=== PATIENT | female | born 1965 | race Hispanic/Latino ===

== ENCOUNTER 2019-09-20 08:49 | Emergency (ER) | payer SELFPAY ==
[2019-09-20] VITALS (27 sets, daily range): BP systolic 123–157; BP diastolic 63–106; PULSE 84–119; RESP 13–28; TEMP 36.8; O2SAT 96–100
--- NOTE | ~2019-09-20 | XR_ITS ---
EXAMINATION: XR chest 1V portable DATE: 09/20/2019 10:01 INDICATION: Shortness of breath. TECHNIQUE: A single frontal view of the chest was obtained. COMPARISON: None. FINDINGS: The chest demonstrates clear lungs without pneumonia, pleural effusion, or pneumothorax. Th e heart size is normal. IMPRESSION: 1. No acute cardiopulmonary disease. Reviewed, dictated and finalized at location A.
--- NOTE | 2019-09-20 09:28 | ECG_ITS ---
Measurements Intervals [place] Rate: 78 P: 19 MN: 134 QRS: 21 QRSD: 94 T: 38 QT: 372 QTc: 426 Interpretive Statements SINUS RHYTHM DELAYED PRECORDIAL R/S TRANSITION BORDERLINE ECG Electronically Signed On 09-20-2019 10:29:23 CDT by Mandeep Moore D.O.
[2019-09-20] MEDS: IPRATROPIUM BR 0.02% INH SOLN 0.5 MG/2.5 ML VIAL 1.5 MG INHALATION (09:46)
[2019-09-20] MEDS: ALBUTEROL SULFATE NEB 2.5 MG/0.5 ML INH 15 MG INHALATION (09:46)
[2019-09-20 10:29] LABS: Blood Urea Nitrogen 10 mg/dL (7-17); Calcium 8.8 mg/dL (8.4-10.2); Carbon Dioxide 20 mmol/L (22-30); Chloride 109 mmol/L (98-107); Estimated CRCL calculation 84 ml/min; Estimated Glomerular Filt Rate > 60; Glucose 116 mg/dL (65-105); Potassium 3.7 mmol/L (3.4-5.0); Sodium 139 mmol/L (137-145)
--- NOTE | 2019-09-20 11:31 | PC.NURSE ---
UDT completed. Note patient is not coughing as much as on arrival, but denies feeling any better.
--- NOTE | 2019-09-20 11:43 | PC.NURSE ---
No audible wheezing heard at this time.
[2019-09-20 11:45] LABS: Basophils Absolute Auto 0.1 K/mm3 (0.0-0.1); Basophils Percent Auto 1.1 % (0.2-1.2); Eosinophils Absolute Auto 0.8 K/mm3 (0-0.3); Eosinophils Percent Auto 7.9 % (0-4.4); Hemoglobin 13.7 g/dL (12.0-15.0); Immature Granulocyte Absolute 0.02 K/mm3 (0.00-0.031); Immature Granulocyte Percent A 0.2 % (0-0.5); Lymphocytes Absolute Auto 2.19 K/mm3 (0.9-3.2); Lymphocytes Percent Auto 23.2 % (18.3-44.2); Mean Corpuscular HGB Conc 33.4 g/dl (32-36); Mean Corpuscular Hemoglobin 28.4 pg (26-34); Mean Corpuscular Volume 84.9 fl (80-100); Mean Platelet Volume 9.5 fl (7.4-10.4); Monocytes Absolute Auto 0.7 K/mm3 (0.1-0.6); Monocytes Percent Auto 6.9 % (2.6-8.5); Neutrophils Absolute Auto 5.8 K/mm3 (1.3-6.7); Neutrophils Percent Auto 60.7 % (45.5-73.1); Platelet Count Result 241 k/mm3 (150-375); Red Blood Count 4.83 M/mm3 (4.2-5.4); White Blood Count 9.5 K/mm3 (4.5-10.0)
--- NOTE | 2019-09-20 13:44 | ED.SOB ---
HPI - SOB/Dyspnea General Chief Complaint: Shortness of Breath/Dyspnea Stated Complaint: sob Time Seen by Provider: 09/20/19 09:13 History of Present Illness HPI Narrative: Patient is a 54-year-old female who presents ER with shortness of breath. Ongoing for the last 2 weeks but worsening over the last week. Associated with cough. No fevers no chills. Has history of reactive airway disease and uses albuterol and usually improves when taking steroids. She does not have a primary care doctor. She denies any chest pain. Has been using her albuterol 3-4 times a day without relief. No known sick contacts. This often occurs with season change. Related Data Home Medications Medication Instructions Recorded Confirmed Cough Syrup 09/20/19 albuterol sulfate [ProAir HFA] 2 puff INHALATION QID PRN 09/20/19 09/20/19 Allergies Allergy/AdvReac Type Severity Reaction Status Date / Time No Known Allergies Allergy Verified 09/20/19 09:24 Review of Systems Review of Systems: All systems reviewed & are unremarkable except as noted in HPI and below Constitutional: Constitutional: Denies chills, Denies fever(s) and Denies weakness ENT: Denies nasal congestion and Denies sore throat Cardiovascular: Cardiovascular: Denies chest pain and Denies radiating jaw, neck or arm pain Respiratory: Respiratory: Reports cough, Reports dyspnea and Reports wheezing Gastrointestinal: Gastrointestinal: Denies abdominal pain, Denies nausea and Denies vomiting PMFSH Past Medical History Medical History (Updated 09/20/19 @ 14:21 by Gopi Calderon MD) Reactive airway disease Surgical History Surgical History (Updated 09/20/19 @ 13:45 by Goip Calderon MD) No significant past surgical history Social History Social History (Updated 09/20/19 @ 13:45 by Gopi Calderon MD) Smoking status: Never smoker Exam Narrative: Exam Narrative: GENERAL: Well-appearing, well-nourished, and in no acute distress. HEAD: Normocephalic, atraumatic. ENT: Mucous membranes moist. CHEST: Diffuse expiratory wheezing. Mild tachypnea. HEART: Regular rate and rhythm. Normal peripheral pulses. ABDOMEN: Soft, nontender, nondistended. EXTREMITIES: Normal range of motion. No edema. SKIN: Warm, dry, no rash. NEURO: Alert and oriented x3. PSYCH: Normal mood and affect. Course Course Emergency Course: Patient still with wheezing after hour-long nebulizer but feels much better. Discussed chamber use with albuterol. Discharged with prednisone. Vital Signs Vital signs: Vital Signs Pulse Rate 109 H 09/20/19 08:53 Respiratory Rate 22 H 09/20/19 08:53 Blood Pressure 157/87 H 09/20/19 08:53 Pulse Oximetry 98 09/20/19 08:53 Temperature 98.3 F 09/20/19 09:26 Pulse Rate 87 09/20/19 13:38 Respiratory Rate 20 09/20/19 13:38 Blood Pressure 143/73 H 09/20/19 13:16 Pulse Oximetry 97 09/20/19 13:38 MDM - SOB/Dyspnea Lab Data Result diagrams: 09/20/19 11:39 09/20/19 10:01 Labs: Lab Results 09/20/19 09/20/19 Range/Units 10:01 11:39 WBC 9.5 (4.5-10.0) K/mm3 RBC 4.83 (4.2-5.4) M/mm3 Hgb 13.7 (12.0-15.0) g/dL Hct 41.0 (37.0-47.0) % MCV 84.9 (80-100) fl MCH 28.4 (26-34) pg MCHC 33.4 (32-36) g/dl RDW 13.0 (11.5-14.5) % Plt Count 241 (150-375) k/mm3 MPV 9.5 (7.4-10.4) fl Immature Gran % (Auto) 0.2 (0-0.5) % Neut % (Auto) 60.7 (45.5-73.1) % Lymph % (Auto) 23.2 (18.3-44.2) % [place] % (Auto) 6.9 (2.6-8.5) % Eos % (Auto) 7.9 H (0-4.4) % Baso % (Auto) 1.1 (0.2-1.2) % Lymph # (Auto) 2.19 (0.9-3.2) K/mm3 [place] # (Auto) 0.7 H (0.1-0.6) K/mm3 Eos # (Auto) 0.8 H (0-0.3) K/mm3 Baso # (Auto) 0.1 (0.0-0.1) K/mm3 Abs Immat Gran (auto) 0.02 (0.00-0.031) K/mm3 Absolute Neuts (auto) 5.8 (1.3-6.7) K/mm3 Absolute Nucleated RBC 0.0 (0.0-0.012) K/mm3 Nucleated RBC % 0.0 (0.0-0.2) % Sodium 139 (137-145) mmol
== END 2019-09-20 14:35 | disposition home or self-care (01) ==
PROVIDERS: Emergency Provider Emergency Medicine
DX: J40 Bronchitis, not specified as acute or chronic (principal)
CPT/HCPCS: 36415; 71045; 80048; 85025; 93005; 99284

== ENCOUNTER 2019-10-11 22:08 | Emergency (ER) | payer SELFPAY ==
--- NOTE | ~2019-10-11 | XR_ITS ---
EXAMINATION: XR chest 1V portable INDICATION: Cough TECHNIQUE: Portable AP chest at 2222 hours COMPARISON: 09/20/2019 FINDINGS: There are airspace opacities of the lower lung zones. No pleural effusion or pneumothorax i s identified. The cardiomediastinal silhouette is normal. IMPRESSION: 1. Minimal airspace opacities of the lung bases, consistent with atelectasis versus pneumonia. Reviewed, dictated and finalized at location A. IMPRESSION: 1. Minimal airspace opacities of the lung bases, consistent with atelectasis ve rsus pneumonia.
[2019-10-11 22:17] VITALS: BP 138/99; PULSE 95; RESP 18; TEMP 36.8; O2SAT 99
[2019-10-11 22:46] VITALS: PULSE 95; RESP 18
[2019-10-11] MEDS: ALBUTEROL SULFATE NEB 2.5 MG/0.5 ML INH 5 MG INHALATION ×2 (22:46→22:59)
[2019-10-11] MEDS: IPRATROPIUM BR 0.02% INH SOLN 0.5 MG/2.5 ML VIAL INHALATION ×2 (22:46→22:59)
[2019-10-11 22:53] VITALS: PULSE 93; RESP 18
[2019-10-11] MEDS: predniSONE 20 MG TABLET 60 MG PO (22:56)
--- NOTE | 2019-10-11 22:59 | ED.SOB ---
HPI - SOB/Dyspnea General Chief Complaint: Shortness of Breath/Dyspnea Stated Complaint: cough Time Seen by Provider: 10/11/19 22:12 Source: RN notes reviewed and old records reviewed History of Present Illness HPI Narrative: Patient presents emergency department from home for cough. Patient states for the past 3 days she has had a cough that is been nonproductive. She states is associated with mild shortness of breath and wheezing. Patient states that she has a history of reactive airway disease and has had similar symptoms usually treated with steroids and inhaler. Patient also notes mild sore throat. She denies any fevers or chills rhinorrhea chest pain abdominal pain nausea vomiting or any other symptoms. Patient denies tobacco use Related Data Home Medications Medication Instructions Recorded Confirmed Cough Syrup 09/20/19 albuterol sulfate [ProAir HFA] 2 puff INHALATION QID PRN 09/20/19 09/20/19 Allergies Allergy/AdvReac Type Severity Reaction Status Date / Time No Known Allergies Allergy Verified 09/20/19 09:24 Review of Systems Review of Systems: Narrative: Gen.: Denies fevers or chills Eyes: Denies eye pain or visual change ENT: Denies congestion, reports sore throat Respiratory: See HPI CV: Denies chest pain or palpitations GI: Denies abdominal pain nausea, emesis or diarrhea Musculoskeletal: Denies back pain or muscle pain Neuro: Denies numbness, tingling, weakness or focal weakness Skin: Denies rash Except as documented, all other systems reviewed and negative PMFSH Past Medical History Medical History Reactive airway disease Surgical History Surgical History (Updated 09/20/19 @ 13:45 by Gopi Calderon MD) No significant past surgical history Social History Social History Smoking status: Never smoker Exam Narrative: Exam Narrative: APPEARANCE: No acute distress, nontoxic, resting in bed EYES: EOMI HEENT: Normocephalic, atraumatic, nares patent oromucosa moist, mild erythema no Clark posterior pharynx bilateral tonsils RESPIRATORY: No respiratory distress wheezing throughout the bilateral lung smith with no rhonchi or rales CARDIOVASCULAR: Regular rate and rhythm without murmurs rubs or gallops. ABDOMINAL: Soft, nontender, nondistended, no rebound or guarding MUSCULOSKELETAl: Moves all extremities. No clubbing, cyanosis or edema. NEURO: Awake and alert. Following commands, speech normal, no focal deficits SKIN:: Warm, dry. No rashes lesions or abrasions PSYCHIATRIC: Normal affect/mood, Course Course Emergency Course: Patient states she is feeling much better following breathing treatment repeat lung exam is clear to all station bilaterally Discussed with patient results of workup and diagnosis. Discussed need for follow-up with primary care, proper use of medication, and reasons to return to the emergency department. Patient understands and agrees to current treatment plan Vital Signs Vital signs: Vital Signs Temperature 98.3 F 10/11/19 22:17 Pulse Rate 95 10/11/19 22:17 Respiratory Rate 18 10/11/19 22:17 Blood Pressure 138/99 H 10/11/19 22:17 Pulse Oximetry 99 10/11/19 22:17 Temperature 98.3 F 10/11/19 22:17 Pulse Rate 92 10/11/19 23:10 Respiratory Rate 18 10/11/19 23:10 Blood Pressure 138/99 H 10/11/19 22:17 Pulse Oximetry 99 10/11/19 22:17 MDM - SOB/Dyspnea Lab Data Labs: Strep Screen Presumptive Negative *(Reference Range: Negative)* Imaging Data Radiologist's impression: ITS Impressions Chest X-Ray 10/11/19 22:24 IMPRESSION: 1. Minimal airspace opacities of the lung bases, consistent with atelectasis versus pneumonia. Discharge Plan Discharge Clinical Impression: Acute upper respiratory infection Patient Disposition: Home, Self-Care Condition: Stable In
[2019-10-11 23:02] VITALS: PULSE 94; RESP 18
[2019-10-11 23:10] VITALS: PULSE 92; RESP 18
[2019-10-12 00:08] VITALS: BP 142/84; PULSE 88; RESP 18; O2SAT 97
== END 2019-10-12 00:10 | disposition home or self-care (01) ==
PROVIDERS: Emergency Provider Emergency Medicine
DX: J06.9 Acute upper respiratory infection, unspecified (principal); J45.909 Unspecified asthma, uncomplicated
CPT/HCPCS: 71045; 87081; 87880; 94640; 99284; J7512

== ENCOUNTER 2019-10-31 18:58 | Emergency (ER) | payer SELFPAY ==
[2019-10-31] VITALS (7 sets, daily range): BP systolic 116–160; BP diastolic 73–117; PULSE 93–120; RESP 15–35; TEMP 36.3–36.4; O2SAT 96–100
--- NOTE | 2019-10-31 19:02 | ECG_ITS ---
Measurements Intervals [place] Rate: 125 P: 34 MS: 140 QRS: 24 QRSD: 89 T: 12 QT: 316 QTc: 456 Interpretive Statements SINUS TACHYCARDIA DELAYED PRECORDIAL R/S TRANSITION BASELINE ARTIFACT- I, II, III, AVR, AVL, AVF, V1, V4-V6 ABNORMAL ECG Electronically Signed On 11-01-2019 11:30:46 CDT by Mandeep Moore D.O.
[2019-10-31] MEDS: IPRATROPIUM BR 0.02% INH SOLN 0.5 MG/2.5 ML VIAL 1.5 MG INHALATION (19:14)
[2019-10-31] MEDS: ALBUTEROL SULFATE NEB 2.5 MG/0.5 ML INH 15 MG INHALATION (19:14)
[2019-10-31 19:32] LABS: Basophils Absolute Auto 0.1 K/mm3 (0.0-0.1); Basophils Percent Auto 1.5 % (0.2-1.2); Eosinophils Absolute Auto 0.6 K/mm3 (0-0.3); Eosinophils Percent Auto 9.4 % (0-4.4); Hematocrit 42.7 % (37.0-47.0); Hemoglobin 14.4 g/dL (12.0-15.0); Immature Granulocyte Absolute 0.01 K/mm3 (0.00-0.031); Immature Granulocyte Percent A 0.2 % (0-0.5); Lymphocytes Absolute Auto 1.77 K/mm3 (0.9-3.2); Lymphocytes Percent Auto 29.1 % (18.3-44.2); Mean Corpuscular HGB Conc 33.7 g/dl (32-36); Mean Corpuscular Hemoglobin 28.7 pg (26-34); Mean Corpuscular Volume 85.2 fl (80-100); Mean Platelet Volume 11.2 fl (7.4-10.4); Monocytes Absolute Auto 0.7 K/mm3 (0.1-0.6); Monocytes Percent Auto 10.8 % (2.6-8.5); Platelet Count Result 210 k/mm3 (150-375); Red Blood Count 5.01 M/mm3 (4.2-5.4); Red Cell Distribution Width 12.7 % (11.5-14.5); White Blood Count 6.1 K/mm3 (4.5-10.0)
[2019-10-31 19:44] LABS: Blood Urea Nitrogen 11 mg/dL (7-17); Calcium 8.5 mg/dL (8.4-10.2); Carbon Dioxide 25 mmol/L (22-30); Chloride 109 mmol/L (98-107); Estimated Glomerular Filt Rate > 60; Glucose 126 mg/dL (65-105); Potassium 3.7 mmol/L (3.4-5.0); Sodium 141 mmol/L (137-145)
--- NOTE | 2019-10-31 19:44 | ED.SOB ---
HPI - SOB/Dyspnea General Chief Complaint: Shortness of Breath/Dyspnea Stated Complaint: SOB Time Seen by Provider: 10/31/19 19:04 History of Present Illness HPI Narrative: Patient is a 54-year-old female who presents the ER with shortness of breath. She has history of asthma. Reports she began getting short of breath yesterday but then it is worsened today. She has been using her inhaler without relief. No new infectious symptoms. Related Data Home Medications Medication Instructions Recorded Confirmed Cough Syrup 09/20/19 albuterol sulfate [ProAir HFA] 2 puff INHALATION QID PRN 09/20/19 09/20/19 Allergies Allergy/AdvReac Type Severity Reaction Status Date / Time No Known Allergies Allergy Verified 09/20/19 09:24 Review of Systems Review of Systems: ROS unobtainable: Yes unobtainable due to medical condition and other (sami speaking in rest distress) [facility] Surgical History Surgical History (Updated 09/20/19 @ 13:45 by Gopi Calderon MD) No significant past surgical history Social History Social History Smoking status: Never smoker Exam Narrative: Exam Narrative: GENERAL: Uncomfortable-appearing, well-nourished, and in moderate distress. HEAD: Normocephalic, atraumatic. ENT: Mucous membranes moist. CHEST: Tachypnea with diffuse inspiratory/expiratory wheezing. Moderate respiratory distress. HEART: Tachycardic and regular. Normal peripheral pulses. ABDOMEN: Soft, nontender, nondistended. EXTREMITIES: Normal range of motion. No edema. SKIN: Warm, dry, no rash. NEURO: Alert and oriented x3. Course Course Emergency Course: Patient is up and ambulatory without hypoxia. Feels much better. Discharge with steroids and refill of albuterol. Vital Signs Vital signs: Vital Signs Temperature 97.3 F L 10/31/19 19:09 Pulse Rate 120 H 10/31/19 19:09 Respiratory Rate 35 H 10/31/19 19:09 Blood Pressure 160/117 H 10/31/19 19:09 Pulse Oximetry 97 10/31/19 19:09 Temperature 97.6 F 10/31/19 21:35 Pulse Rate 93 10/31/19 21:35 Respiratory Rate 29 H 10/31/19 21:35 Blood Pressure 122/73 10/31/19 21:35 Pulse Oximetry 96 10/31/19 21:35 MDM - SOB/Dyspnea Lab Data Result diagrams: 10/31/19 19:27 10/31/19 19:27 Labs: Lab Results 10/31/19 10/31/19 Range/Units 19:27 19:27 WBC 6.1 (4.5-10.0) K/mm3 RBC 5.01 (4.2-5.4) M/mm3 Hgb 14.4 (12.0-15.0) g/dL Hct 42.7 (37.0-47.0) % MCV 85.2 (80-100) fl MCH 28.7 (26-34) pg MCHC 33.7 (32-36) g/dl RDW 12.7 (11.5-14.5) % Plt Count 210 (150-375) k/mm3 MPV 11.2 H (7.4-10.4) fl Immature Gran % (Auto) 0.2 (0-0.5) % Neut % (Auto) 49.0 (45.5-73.1) % Lymph % (Auto) 29.1 (18.3-44.2) % [place] % (Auto) 10.8 H (2.6-8.5) % Eos % (Auto) 9.4 H (0-4.4) % Baso % (Auto) 1.5 H (0.2-1.2) % Lymph # (Auto) 1.77 (0.9-3.2) K/mm3 [place] # (Auto) 0.7 H (0.1-0.6) K/mm3 Eos # (Auto) 0.6 H (0-0.3) K/mm3 Baso # (Auto) 0.1 (0.0-0.1) K/mm3 Abs Immat Gran (auto) 0.01 (0.00-0.031) K/mm3 Absolute Neuts (auto) 3.0 (1.3-6.7) K/mm3 Absolute Nucleated RBC 0.0 (0.0-0.012) K/mm3 Nucleated RBC % 0.0 (0.0-0.2) % Sodium 141 (137-145) mmol/L Potassium 3.7 (3.4-5.0) mmol/L Chloride 109 H (98-107) mmol/L Carbon Dioxide 25 (22-30) mmol/L BUN 11 (7-17) mg/dL Creatinine 0.80 (0.7-1.0) mg/dL Estim Creat Clear Calc Not Reportable Estimated GFR > 60 (59 - ) Glucose 126 H (65-105) mg/dL Calcium 8.5 (8.4-10.2) mg/dL Discharge Plan Discharge Clinical Impression: Asthma with exacerbation Patient Disposition: Home, Self-Care Condition: Stable Instructions: Asthma (ED) Additional Instructions: Return to the ER if you have worsening shortness of breath, you cannot keep down food or water, you have chest pain or shortness of breath, you have ad
[2019-10-31] MEDS: methylPREDNISolone SOD SUCC 125 MG VIAL IV PUSH (19:53)
--- NOTE | 2019-10-31 22:15 | PC.NURSE ---
pt walked around ED with pulse oximetry. Remained 96-98% on room air and HR 105bpm. Pt stated she did not feel sob
== END 2019-10-31 22:38 | disposition home or self-care (01) ==
PROVIDERS: Emergency Provider Emergency Medicine
DX: J45.901 Unspecified asthma with (acute) exacerbation (principal); R00.0 Tachycardia, unspecified; R94.31 Abnormal electrocardiogram [ECG] [EKG]
CPT/HCPCS: 36415; 80048; 85025; 93005; 94640; 96374; 99284; J2930

== ENCOUNTER 2019-11-27 03:37 | Emergency (ER) | payer SELFPAY ==
--- NOTE | ~2019-11-27 | XR_ITS ---
EXAMINATION: XR chest 1V portable DATE: 11/27/2019 04:13 INDICATION: Shortness of breath TECHNIQUE: frontal view of the chest was obtained. COMPARISON: Chest radiograph dated 10/11/2019 FINDINGS: The lungs remain clear with no focal airspace opacities, pulmonary edema, pleural effusion or pneumot horax. The cardiomediastinal silhouette is normal. Visualized bones and soft tissues are unremarkable . IMPRESSION: 1. No acute cardiopulmonary disease. Reviewed, dictated and finalized at location A.
[2019-11-27 03:46] VITALS: BP 131/80; PULSE 76; RESP 20; TEMP 36.6; O2SAT 100
[2019-11-27] MEDS: ALBUTEROL SULFATE NEB 2.5 MG/0.5 ML INH 5 MG INHALATION (04:12)
[2019-11-27] MEDS: IPRATROPIUM BR 0.02% INH SOLN 0.5 MG/2.5 ML VIAL INHALATION (04:12)
[2019-11-27 04:13] VITALS: PULSE 76; RESP 22
[2019-11-27 04:20] VITALS: O2SAT 96
[2019-11-27 04:22] VITALS: PULSE 74; RESP 20
[2019-11-27] MEDS: predniSONE 20 MG TABLET 60 MG PO (04:25)
[2019-11-27 04:38] VITALS: BP 114/79; PULSE 80; RESP 18; O2SAT 95
--- NOTE | 2019-11-27 04:57 | ED.ASTHMA ---
HPI - Asthma General Chief Complaint: Asthma Stated Complaint: asthma exacerbation Time Seen by Provider: 11/27/19 03:45 Source: RN notes reviewed History of Present Illness HPI Narrative: Patient presents emergency department from home for shortness of breath. Patient states she has a history of asthma and feels that her asthma is flared up over the past 24 hours. States she has been having wheezing and using her rescue inhaler with minimal relief. She denies any fevers or chills cough abdominal pain nausea vomiting or any other symptoms. States she has been using her inhaler as prescribed Related Data Home Medications Medication Instructions Recorded Confirmed Cough Syrup 09/20/19 albuterol sulfate [ProAir HFA] 2 puff INHALATION QID PRN 09/20/19 09/20/19 Allergies Allergy/AdvReac Type Severity Reaction Status Date / Time No Known Allergies Allergy Verified 11/27/19 03:49 Review of Systems Review of Systems: Narrative: Gen.: Denies fevers or chills Eyes: Denies eye pain or visual change ENT: Denies congestion Respiratory: See HPI CV: Denies chest pain or palpitations GI: Denies abdominal pain nausea, emesis or diarrhea Musculoskeletal: Denies back pain or muscle pain Neuro: Denies numbness, tingling, weakness or focal weakness Skin: Denies rash Except as documented, all other systems reviewed and negative [facility] Surgical History Surgical History (Updated 09/20/19 @ 13:45 by Gopi Calderon MD) No significant past surgical history Social History Social History Smoking status: Never smoker Exam Narrative: Exam Narrative: APPEARANCE: No acute distress, nontoxic, resting in bed EYES: EOMI HEENT: Normocephalic, atraumatic, OMM RESPIRATORY: Moderate distress, wheezing in the upper lung smith, no rhonchi or rales CARDIOVASCULAR: Regular rate and rhythm without murmurs rubs or gallops. ABDOMINAL: Soft, nontender, nondistended, no rebound or guarding MUSCULOSKELETAl: Moves all extremities. No clubbing, cyanosis or edema. NEURO: Awake and alert. Following commands, speech normal, no focal deficits SKIN:: Warm, dry. No rashes lesions or abrasions PSYCHIATRIC: Normal affect/mood, Course Course Emergency Course: Reviewed old records Patient states she is feeling much better following breathing treatment. Repeat lung exam clear to all station bilaterally Discussed with patient results of workup and diagnosis. Discussed need for follow-up with primary care, proper use of medication, and reasons to return to the emergency department. Patient understands and agrees to current treatment plan. Patient states she has an inhaler at home Vital Signs Vital signs: Vital Signs Temperature 97.8 F 11/27/19 03:46 Pulse Rate 76 11/27/19 03:46 Respiratory Rate 20 11/27/19 03:46 Blood Pressure 131/80 11/27/19 03:46 Pulse Oximetry 100 11/27/19 03:46 Temperature 97.8 F 11/27/19 03:46 Pulse Rate 80 11/27/19 04:38 Respiratory Rate 18 11/27/19 04:38 Blood Pressure 114/79 11/27/19 04:38 Pulse Oximetry 95 11/27/19 04:38 MDM - Asthma Imaging Data Attestation: I personally reviewed and interpreted this imaging study as follows: My impression: Chest x-ray reviewed by myself shows no acute process Discharge Plan Discharge Clinical Impression: Asthma with acute exacerbation Patient Disposition: Home, Self-Care Condition: Stable Instructions: Antibiotic Form, Asthma (ED) Additional Instructions: Return for increasing shortness of breath fever or any other symptoms of concern Prescriptions: New prednisone 20 mg tablet 20 mg PO BID Qty: 10 RF: 0 No Action albuterol sulfate [ProAir HFA] 90 mcg/actuation Hfa Aerosol Inhaler 2 puff INHALATION QID PRN (Reason: Cough) RF: 0 Cough Syrup RF: 0 prednisone 50 mg tablet 50 mg PO DAILY Qty: 8 RF: 0 (DME) Aerochamber MV Spacer See R
[2019-11-27 05:11] VITALS: BP 129/79; PULSE 88; RESP 15; O2SAT 96
== END 2019-11-27 05:11 | disposition home or self-care (01) ==
PROVIDERS: Emergency Provider Emergency Medicine
DX: J45.901 Unspecified asthma with (acute) exacerbation (principal)
CPT/HCPCS: 71045; 94640; 99283; J7512

== ENCOUNTER 2020-01-13 00:56 | Emergency (ER) | payer SELFPAY ==
[2020-01-13] VITALS (9 sets, daily range): BP systolic 94–139; BP diastolic 58–89; PULSE 68–98; RESP 14–22; TEMP 36.6; O2SAT 96
--- NOTE | ~2020-01-13 | XR_ITS ---
EXAMINATION: XR chest 1V portable DATE: 01/13/2020 02:01 INDICATION: Cough and shortness of breath. TECHNIQUE: A single frontal view of the chest was obtained. COMPARISON: Chest single view 11/27/2019 FINDINGS: The chest demonstrates clear lungs without pneumonia, pleural effusion, or pneumothorax. Th e heart size is normal. IMPRESSION: 1. No acute cardiopulmonary disease. Reviewed, dictated and finalized at location A.
--- NOTE | 2020-01-13 01:11 | ECG_ITS ---
Measurements Intervals [place] Rate: 89 P: 30 NM: 120 QRS: 50 QRSD: 99 T: 46 QT: 370 QTc: 451 Interpretive Statements SINUS RHYTHM VENTRICULAR PREMATURE COMPLEX DELAYED PRECORDIAL R/S TRANSITION BASELINE ARTIFACT- I, II, III, AVF, V4-V6 BORDERLINE ECG Electronically Signed On 01-13-2020 7:00:14 CDT by Mandeep Moore D.O.
--- NOTE | 2020-01-13 01:11 | ED.SOB ---
HPI - SOB/Dyspnea General Chief Complaint: Shortness of Breath/Dyspnea Stated Complaint: Wheezing/SOB Time Seen by Provider: 01/13/20 01:11 Source: RN notes reviewed History of Present Illness HPI Narrative: Patient presents emergency department from home for asthma. Patient states that she was having wheezing this evening. States she has a history of asthma and is out of her inhaler. She denies any cough. Denies any fevers or chills chest pain abdominal pain or any other symptoms. States she has been seen in the ED for similar episodes before in the past and this feels consistent with her previous asthma attacks Related Data Home Medications Medication Instructions Recorded Confirmed Cough Syrup 09/20/19 albuterol sulfate [ProAir HFA] 2 puff INHALATION QID PRN 09/20/19 09/20/19 Allergies Allergy/AdvReac Type Severity Reaction Status Date / Time No Known Allergies Allergy Verified 01/13/20 01:07 Review of Systems Review of Systems: Narrative: Gen.: Denies fevers or chills Eyes: Denies eye pain or visual change ENT: Denies congestion Respiratory: see HPI CV: Denies chest pain or palpitations GI: Denies abdominal pain nausea, emesis or diarrhea Musculoskeletal: Denies back pain or muscle pain Neuro: Denies numbness, tingling, weakness or focal weakness Skin: Denies rash Except as documented, all other systems reviewed and negative [facility] Surgical History Surgical History (Updated 09/20/19 @ 13:45 by Gopi Calderon MD) No significant past surgical history Social History Social History Smoking status: Never smoker Exam Narrative: Exam Narrative: APPEARANCE: No acute distress, nontoxic, resting in bed EYES: EOMI HEENT: Normocephalic, atraumatic, OMM RESPIRATORY: No respiratory distress wheezing throughout the bilateral lung smith with decreased breath sounds in the bases no rhonchi CARDIOVASCULAR: Regular rate and rhythm without murmurs rubs or gallops. ABDOMINAL: Soft, nontender, nondistended, no rebound or guarding MUSCULOSKELETAl: Moves all extremities. No clubbing, cyanosis or edema. NEURO: Awake and alert. Following commands, speech normal, no focal deficits SKIN:: Warm, dry. No rashes lesions or abrasions PSYCHIATRIC: Normal affect/mood, Course Course Emergency Course: Reviewed old records Given breathing treatment in ED. Following breathing treatment repeat lung exam is greatly improved with minimal wheezing upper lung smith. Patient states she is feeling much better ready for discharge Discussed with patient results of workup and diagnosis. Discussed need for follow-up with primary care, proper use of medication, and reasons to return to the emergency department. Patient understands and agrees to current treatment plan Vital Signs Vital signs: Vital Signs Temperature 97.8 F 01/13/20 00:58 Pulse Rate 98 01/13/20 00:58 Respiratory Rate 22 H 01/13/20 00:58 Blood Pressure 139/89 01/13/20 00:58 Pulse Oximetry 96 01/13/20 00:58 Temperature 97.8 F 01/13/20 00:58 Pulse Rate 69 01/13/20 02:24 Respiratory Rate 14 01/13/20 02:24 Blood Pressure 139/89 01/13/20 00:58 Pulse Oximetry 96 01/13/20 01:04 MDM - SOB/Dyspnea Imaging Data Attestation: I personally reviewed and interpreted this imaging study as follows: My impression: Chest x-ray reviewed by myself shows no acute process ECG Data EKG #1: Interpretation: Sinus rhythm 89, NC is normal, axis normal, QTC is normal, ST segments normal Discharge Plan Discharge Clinical Impression: Asthma with exacerbation Patient Disposition: Home, Self-Care Condition: Stable Instructions: Antibiotic Form, Asthma (ED) Additional Instructions: Return for increasing shortness of breath, fever or any other symptoms of concern Prescriptions: New prednisone 20 mg tablet 20 mg PO BID Qty: 10 RF: 0 albuterol sulfate 90 mcg/actuation HFA
[2020-01-13] MEDS: predniSONE 20 MG TABLET 60 MG PO (01:37)
[2020-01-13] MEDS: ALBUTEROL SULFATE NEB 2.5 MG/0.5 ML INH 5 MG INHALATION ×2 (02:02→02:18)
[2020-01-13] MEDS: IPRATROPIUM BR 0.02% INH SOLN 0.5 MG/2.5 ML VIAL INHALATION ×2 (02:03→02:17)
== END 2020-01-13 02:44 | disposition home or self-care (01) ==
PROVIDERS: Emergency Provider Emergency Medicine
DX: J45.901 Unspecified asthma with (acute) exacerbation (principal); I49.3 Ventricular premature depolarization
CPT/HCPCS: 71045; 93005; 94640; 99284; J7512

== ENCOUNTER 2020-02-07 23:55 | Inpatient (IN) | payer SELFPAY ==
--- NOTE | ~2020-02-07 | XR_ITS ---
EXAMINATION: XR chest 1V portable EXAM DATE: 02/08/2020 00:53 INDICATION: Shortness of breath. TECHNIQUE: Portable AP frontal chest x-ray was obtained. Comparison is made to prior examination from 01/13/2020. FINDINGS: The lungs are clear. There are no pleural effusions. The cardiomediastinal silhouette is within normal limits. There is no pneumothorax suspected. The bones and soft tissues are unremarkab le. There is no significant interval change. IMPRESSION: No acute cardiopulmonary findings. Reviewed, dictated and finalized at location A.
[2020-02-08] VITALS (25 sets, daily range): BP systolic 111–187; BP diastolic 62–116; PULSE 57–120; RESP 12–30; TEMP 35.8–36.9; O2SAT 94–100; BMI 32.8
--- NOTE | 2020-02-08 00:04 | ECG_ITS ---
Measurements Intervals [place] Rate: 115 P: 40 ND: 127 QRS: 34 QRSD: 97 T: 33 QT: 320 QTc: 443 Interpretive Statements SINUS TACHYCARDIA DELAYED PRECORDIAL R/S TRANSITION BASELINE ARTIFACT- I, II, III, AVR, AVL, AVF, V1-V6 ABNORMAL ECG Electronically Signed On 02-08-2020 6:40:08 CDT by Madneep Moore D.O.
[2020-02-08 00:25] LABS: Basophils Absolute Auto 0.1 K/mm3 (0.0-0.1); Basophils Percent Auto 1.4 % (0.2-1.2); Eosinophils Absolute Auto 0.7 K/mm3 (0-0.3); Eosinophils Percent Auto 7.9 % (0-4.4); Hematocrit 45.6 % (37.0-47.0); Hemoglobin 15.3 g/dL (12.0-15.0); Immature Granulocyte Absolute 0.01 K/mm3 (0.00-0.031); Immature Granulocyte Percent A 0.1 % (0-0.5); Lymphocytes Absolute Auto 3.58 K/mm3 (0.9-3.2); Lymphocytes Percent Auto 39.6 % (18.3-44.2); Mean Corpuscular HGB Conc 33.6 g/dl (32-36); Mean Corpuscular Hemoglobin 29.1 pg (26-34); Mean Corpuscular Volume 86.7 fl (80-100); Mean Platelet Volume 10.7 fl (7.4-10.4); Monocytes Absolute Auto 0.9 K/mm3 (0.1-0.6); Monocytes Percent Auto 9.7 % (2.6-8.5); Neutrophils Absolute Auto 3.7 K/mm3 (1.3-6.7); Neutrophils Percent Auto 41.3 % (45.5-73.1); Platelet Count Result 295 k/mm3 (150-375); Red Blood Count 5.26 M/mm3 (4.2-5.4); Red Cell Distribution Width 12.4 % (11.5-14.5)
[2020-02-08 00:33] LABS: Alveolar/Arterial O2 Gradient 28.4 mmHg; Base Excess ABG -2.1 mEq/l (+/-2.0); Carboxyhemoglobin 0.1 % THb (0-2.0); Device NON-INVASIVE VENT; Fractional Inspired Oxygen 30 %; HCO3 ABG 23.2 mEq/l (22.0-26.0); Methemoglobin ABG 0.4 %THb (0-1.5); Modified Allen's Test Pass; Oxygen Content ABG 21.1 %vol (16.0-22.0); Oxygen Saturation ABG 98.6 % (95.0-100.0); Oxyhemoglobin 97.8 % THb (90.0-100.0); PCO2 ABG 41.8 mmHg (35.0-45.0); PO2 ABG 136.4 mmHg (80.0-100.0); PO2 FiO2 Ratio Arterial Blood 4.55 %; Reduced Hemoglobin 1.7 %THb (0-5.0); Site Drawn LEFT RADIAL; Total Hemoglobin 15.2 g/dL (12.0-18.0); pH ABG 7.363 (7.350-7.450)
[2020-02-08 00:34] LABS: Non-Invasive Expiratory Pressure 6 CMH2O; Non-Invasive Inspiratory Pressure 12 CMH2O; Non-Invasive Vent Rate 4 /MIN
[2020-02-08] MEDS: IPRATROPIUM BR 0.02% INH SOLN 0.5 MG/2.5 ML VIAL 1 MG INHALATION (00:43)
[2020-02-08] MEDS: ALBUTEROL SULFATE NEB 2.5 MG/0.5 ML INH 10 MG INHALATION (00:43)
[2020-02-08 00:44] LABS: Anion Gap 9 mmol/L (8-16); Blood Urea Nitrogen 20 mg/dL (7-17); Calcium 9.5 mg/dL (8.4-10.2); Carbon Dioxide 26 mmol/L (22-30); Chloride 106 mmol/L (98-107); Estimated Glomerular Filt Rate 58; Glucose 101 mg/dL (65-105); Potassium 3.5 mmol/L (3.4-5.0); Sodium 141 mmol/L (137-145)
--- NOTE | 2020-02-08 02:20 | ED.SOB ---
HPI - SOB/Dyspnea General Chief Complaint: Shortness of Breath/Dyspnea Stated Complaint: sob Time Seen by Provider: 02/08/20 00:07 Source: patient and family Mode of arrival: ambulatory Limitations: language barrier History of Present Illness HPI Narrative: 54-year-old Japanese-speaking with a history of asthma was brought in by family with complaints of severe shortness of breath. As per the patient is been having shortness of breath for last few days however this evening symptoms got worse. He also mentions that she ran out of her nebulizer. No history of fever or chills. She denies any COVID exposure. Has occasional nonproductive cough. No history of nausea or vomiting. MD elicited complaint: shortness of breath Pertinent past history: asthma Onset (ago): day(s) (2) Timing: constant Severity: severe Exacerbating factors: nothing Relieving factors: nothing Known history of: asthma Associated symptoms: wheezing Related Data Home oxygen amount: none Home Medications Medication Instructions Recorded Confirmed Cough Syrup 09/20/19 albuterol sulfate [ProAir HFA] 2 puff INHALATION QID PRN 09/20/19 09/20/19 Allergies Allergy/AdvReac Type Severity Reaction Status Date / Time No Known Allergies Allergy Verified 01/13/20 01:07 Review of Systems Review of Systems: ROS unobtainable: Yes unobtainable due to medical condition Constitutional: Constitutional: Reports no additional constitutional complaints Eyes: Eyes: Reports as per HPI ENT: Reports as per HPI Cardiovascular: Cardiovascular: Reports no additional cardiovascular complaints Respiratory: Respiratory: Reports no additional respiratory complaints Gastrointestinal: Gastrointestinal: Reports no additional gastrointestinal complaints Musculoskeletal: Musculoskeletal: Reports no additional musculoskeletal complaints [facility] Past Medical History Medical History Reactive airway disease Surgical History Surgical History No significant past surgical history Social History Social History Smoking status: Never smoker Exam Narrative: Exam Narrative: GENERAL: Well-appearing, well-nourished, and in moderate respiratory distress unable to speak. HEAD: Normocephalic, atraumatic. EYES: PERRLA and EOMI. ENT: Nares clear, no rhinorrhea or epistaxis. Mucous membranes moist. NECK: Supple. CHEST: Bilateral wheeze, poor air entry. HEART: Tachycardic ABDOMEN: Soft, nontender, nondistended, normal active bowel sounds. EXTREMITIES: Normal range of motion. No edema. SKIN: Warm, dry, no rash. NEURO: No focal deficits. Alert and oriented x3. PSYCH: Normal mood and affect. Course Course Emergency Course: As patient is in severe respiratory distress will start on BiPAP. Also will give 1 hour long treatment with albuterol and Atrovent. Vital Signs Vital signs: Vital Signs Temperature 36.7 C 02/08/20 00:00 Pulse Rate 120 H 02/08/20 00:00 Respiratory Rate 30 H 02/08/20 00:00 Blood Pressure 187/116 H 02/08/20 00:00 Pulse Oximetry 100 02/08/20 00:00 Temperature 36.7 C 02/08/20 00:00 Pulse Rate 76 02/08/20 01:32 Respiratory Rate 16 02/08/20 01:32 Blood Pressure 187/116 H 02/08/20 00:00 Pulse Oximetry 98 02/08/20 00:25 MDM - SOB/Dyspnea MDM Narrative Medical decision making narrative: Given history of asthma and presently having severe shortness of breath will order CBC chemistry chest x-ray and hour-long neb treatment and also considering place her on BiPAP. Differential Diagnosis Differential diagnosis: Likely acute exacerbation of chronic obstructive airways disease, congestive heart failure and asthma with exacerbation Medical Records Attestation: I reviewed the patient's medical records. Lab Data Result diagrams: 02/08/20 00:06 02/08/20 00:06
--- NOTE | 2020-02-08 04:56 | PC.NURSE ---
This patient, Anya Dyer, was admitted to Intensive Care Unit-3. Patient/family oriented to hospital policies and general routines including ID bracelet, bed and alarms, visiting hours, pain management, procedures, bathroom and other care routines, personal items, smoking policy, room service/diet, and visiting hours. Valuables list has been completed. Information on how to activate the Rapid Response Team has been discussed. Patient/Family are encouraged to report perceived risks to care and to ask questions if they do not understand what they are told or what they should do.
--- NOTE | 2020-02-08 05:26 | PC.NURSE ---
Pt speaks minimal Yoruba- Admission assessment completed via [employer] system.
[2020-02-08] MEDS: SODIUM CHLORIDE 0.9% IV 1,000 ML 75 ML IV CONT (06:21)
--- NOTE | 2020-02-08 07:31 | PM.IMHP ---
H&P: HPI History of Present Illness Date/Time: 02/08/20 07:31 Chief complaint: respiratory distress, asthma excerbation Narrative: Anya Dyer is a 54 year old female with PMHx significant for Asthma, presented to ED due to worsening sob, ran out of Albuterol inhaler, has been using it more frequently in the last month or so, dry cough, non productive of sputum, wheezing, no n/v/abdominal pain/diarrhea, no fevers, no rigors, no chills, no loss of taste or smell, no sick contacts at home, no leg swelling, no chest pain. Has been using her Albuterol more often at night time as well. Review of Systems Review of Systems: Narrative: Worsening sob for the last month or so. Constitutional: Constitutional: Reports as per HPI Eyes: Eyes: Reports as per HPI ENT: Reports as per HPI Cardiovascular: Cardiovascular: Reports as per HPI Respiratory: Respiratory: Reports cough, Reports dyspnea and Reports wheezing Gastrointestinal: Gastrointestinal: Reports as per HPI and Reports no additional gastrointestinal complaints Musculoskeletal: Musculoskeletal: Reports no additional musculoskeletal complaints Integumentary/Breasts: Skin/Breast: Reports as per HPI Neurologic: Reports system reviewed and no additional complaints, except as documented and Reports as per HPI Psychiatric: Psychiatric: Reports as per HPI [facility] Past Medical History Medical History Reactive airway disease Surgical History Surgical History No significant past surgical history Social History Social History Smoking status: Never smoker Alcohol intake: never Substance use: never Substance use type: does not use Spiritual care concerns: No Meds Home Medications and Allergies Home Medications Medication Instructions Recorded Confirmed Type inhalational spacing device #1 each 09/20/19 02/08/20 Rx [Aerochamber MV] albuterol sulfate 2 puff INHALATION QID PRN #6.7 gm 10/11/19 02/08/20 Rx Allergies Allergy/AdvReac Type Severity Reaction Status Date / Time No Known Allergies Allergy Verified 01/13/20 01:07 Vital Signs Vital Signs - 24 hr 02/08/20 00:00 02/08/20 00:10 02/08/20 00:12 Temperature 98.0 F Pulse Rate 120 H 88 96 Respiratory Rate 30 H 28 H Blood Pressure 187/116 H Pulse Oximetry 100 98 02/08/20 00:25 02/08/20 01:00 02/08/20 01:32 Temperature Pulse Rate 88 87 76 Respiratory Rate 26 H 20 16 Blood Pressure 130/79 Pulse Oximetry 98 98 02/08/20 02:00 02/08/20 02:30 02/08/20 03:16 Temperature Pulse Rate 71 76 66 Respiratory Rate 12 16 17 Blood Pressure 111/75 127/81 Pulse Oximetry 99 100 98 02/08/20 04:00 02/08/20 04:27 02/08/20 04:50 Temperature 98.5 F 97.8 F Pulse Rate 60 59 L 63 Respiratory Rate 14 17 16 Blood Pressure 140/75 113/62 Pulse Oximetry 100 98 99 02/08/20 06:00 Temperature 98.5 F Pulse Rate 70 Respiratory Rate 17 Blood Pressure 124/72 Pulse Oximetry 100 Exam Narrative: Exam Narrative: Patient is lying bed in no acute distress, on supplemental O2 by NC. Const: General: cooperative, no acute distress and well developed Nutritional Appearance: average body habitus Orientation/consciousness: patient oriented x3 Limitations: language barrier HENMT: Head: normal to inspection and normocephalic Ears: hearing grossly normal bilaterally General nose exam: Normal external nose present Face and sinus: normal facial exam Mouth: Yes Normal oral and palatal mucosa present Eyes: General: appearance normal, both eyes and all related structures Pupils: Equal, round and reactive pupils present EOM: EOMs intact bilaterally Neck: Neck: full ROM, trachea midline, supple and no JVD Lymphatic: no lymphadenopathy noted Resp: Effort & Inspection: audible wheezes Auscultation: wheezes Cardio:
[2020-02-08] MEDS: IPRATROPIUM BR 0.02% INH SOLN 0.5 MG/2.5 ML VIAL INHALATION ×3 (09:43→21:02)
[2020-02-08] MEDS: ALBUTEROL SULFATE NEB 2.5 MG/0.5 ML INH 5 MG INHALATION ×3 (09:43→21:01)
[2020-02-08] MEDS: methylPREDNISolone SOD SUCC 125 MG VIAL 62.5 MG IV PUSH (11:12)
[2020-02-08 14:24] LABS: SARS-CoV-2 RNA PCR Negative
[2020-02-08] MEDS: methylPREDNISolone SOD SUCC 125 MG VIAL IV PUSH (14:54)
[2020-02-08] MEDS: methylPREDNISolone SOD SUCC 40 MG VIAL IV PUSH (18:48)
[2020-02-09] VITALS (11 sets, daily range): BP systolic 98–117; BP diastolic 60–70; PULSE 70–86; RESP 15–20; TEMP 36.2–36.8; O2SAT 92–97
[2020-02-09] MEDS: ALBUTEROL SULFATE NEB 2.5 MG/0.5 ML INH 5 MG INHALATION ×3 (01:59→21:56)
[2020-02-09] MEDS: IPRATROPIUM BR 0.02% INH SOLN 0.5 MG/2.5 ML VIAL INHALATION ×3 (01:59→21:56)
[2020-02-09] MEDS: methylPREDNISolone SOD SUCC 40 MG VIAL IV PUSH ×6 (03:30→23:17)
--- NOTE | 2020-02-09 09:51 | PM.IMPN ---
Progress Note: A&P Assessment and Plan (1) Asthma with exacerbation: Qualifiers: Asthma persistence: unspecified Asthma severity: severe Qualified Code(s): J45.901 - Unspecified asthma with (acute) exacerbation Code(s): J45.901 - Unspecified asthma with (acute) exacerbation Status: Acute Assessment and Plan: Improved. Still wheezing. Off of supplemental oxygen. Breathing treatments Tapering course of systemic steroids. Subjective Date/time seen: 02/09/20 09:51 Patient in bed, no new issues overnight. Review of Systems Review of Systems: Narrative: Improved sob, afebrile, no new issues overnight. Constitutional: Comments: No chills, no rigors, no fevers. Eyes: Comments: No vision changes. ENT: Comments: no sore throat, no hearing deficit, no ear ache. Cardiovascular: Comments: no chest pain, no pnd, no orthopnea, no leg swelling. Respiratory: Comments: sob, wheezes. Gastrointestinal: Comments: no n/v/abdominal pain. Musculoskeletal: Comments: no muscle aches or pain. Integumentary/Breasts: Comments: no rashes. Neurologic: Comments: no motor or sensation deficit. Exam Narrative: Exam Narrative: Lying in bed NAD, looks comfortable. Const: General: cooperative and well developed Nutritional Appearance: average body habitus and well nourished Limitations: no limitations and language barrier HENMT: Head: normocephalic Ears: hearing grossly normal bilaterally General nose exam: Normal external nose present Face and sinus: normal facial exam Eyes: General: appearance normal, both eyes and all related structures Pupils: Equal, round and reactive pupils present EOM: EOMs intact bilaterally Neck: Neck: normal visual inspection, no lymphadenopathy and no JVD Resp: Effort & Inspection: normal respiratory effort Auscultation: wheezes Cardio: Jugular venous distension: no JVD Rate: regular rate Rhythm: regular rhythm Heart sounds: S1 normal heart sound present and S2 normal heart sound present GI: Inspection: normal to inspection GI Palp: Yes No hepatosplenomegaly present Auscultation: normal bowel sounds Skin: General skin exam: normal color and turgor normal Wounds: no wounds Neuro: General: patient oriented x3 Cranial nerves: Yes CN's II-XII intact bilaterally and Yes Bilaterally intact EOM present Motor exam (neuro): 5/5 motor strength present throughout Objective Data Vital Signs Vital Signs: Vital Signs - 24 hr 02/08/20 10:00 02/08/20 11:11 02/08/20 12:00 Temperature 96.4 F L Pulse Rate 57 L 78 70 Respiratory Rate 18 22 H Blood Pressure 133/75 Pulse Oximetry 98 02/08/20 14:00 02/08/20 14:26 02/08/20 16:00 Temperature 97.9 F Pulse Rate 86 75 90 Respiratory Rate 18 14 Blood Pressure 131/77 Pulse Oximetry 94 02/08/20 20:00 02/08/20 21:02 02/08/20 21:05 Temperature Pulse Rate 90 76 Respiratory Rate 14 18 Blood Pressure Pulse Oximetry 94 96 02/08/20 21:10 02/09/20 00:00 02/09/20 02:00 Temperature Pulse Rate 75 86 72 Respiratory Rate 18 18 18 Blood Pressure Pulse Oximetry 96 02/09/20 02:06 02/09/20 08:00 02/09/20 08:50 Temperature 98.2 F Pulse Rate 70 81 78 Respiratory Rate 18 15 20 Blood Pressure 117/60 Pulse Oximetry 92 02/09/20 09:00 02/09/20 09:48 Temperature Pulse Rate 76 Respiratory Rate 20 Blood Pressure Pulse Oximetry 96 Intake/Output Intake/Output: Intake & Output 02/06/20 02/07/20 02/08/20 02/09/20 23:59 23:59 23:59 23:59 Intake Total 1100 320 Output Total 700 450 Balance 400 -130 Meds/Results Medications: Active Medications Generic Name Dose Route Start Last Admin Trade Name Freq PRN Reason Stop Dose Admin Albuterol 5 mg 02/08/20 08:00 02/09/20 08:50 Albuterol Sulf Neb 2.5mg/0.5ml INHALATION 5 mg Q6HRT ISAURA Administration Ipratropium [place] 0.5 mg 02/08/20 08:00 02/09/20 08:50 Atrovent Neb INHALATION 0.5 mg Q6HRT
--- NOTE | 2020-02-09 13:37 | PC.NURSE ---
This patient, Anya Dyer, was transferred to [facility] on 02/09/20 at 1330. Personal belongings sent with patient. Belongings list checked and signed with receiving staff. Report given to aurelia fletcher. Appropriate documentation sent with patient.
--- NOTE | 2020-02-09 13:45 | PC.NURSE ---
Patient received from IMU at 1330 on 02/09/2020. Patient up in chair with no complaints at this time. Family at bedside. Will continue to monitor patient.
--- NOTE | 2020-02-09 17:23 | PCRCNOTE ---
Window of time for administration has passed. See next scheduled administration.
[2020-02-10 02:26] VITALS: PULSE 75; RESP 16
[2020-02-10 02:35] VITALS: PULSE 74; RESP 16
[2020-02-10 06:00] VITALS: BP 109/67; PULSE 70; RESP 16; TEMP 36.4; O2SAT 94
[2020-02-10] MEDS: methylPREDNISolone SOD SUCC 40 MG VIAL IV PUSH (06:35)
[2020-02-10] MEDS: ALBUTEROL SULFATE NEB 2.5 MG/0.5 ML INH 5 MG INHALATION (09:32)
[2020-02-10] MEDS: IPRATROPIUM BR 0.02% INH SOLN 0.5 MG/2.5 ML VIAL INHALATION (09:33)
[2020-02-10 09:34] VITALS: PULSE 83; RESP 16
[2020-02-10 09:43] VITALS: PULSE 90; RESP 16
--- NOTE | 2020-02-10 10:16 | PM.DS ---
DS: Admitting Diagnosis Admitting Diagnosis Admitting Diagnosis: respiratory distress, asthma excerbation DS: Discharge Diagnosis Discharge Diagnosis (1) Asthma with exacerbation: Qualifiers: Asthma persistence: unspecified Asthma severity: severe Qualified Code(s): J45.901 - Unspecified asthma with (acute) exacerbation Code(s): J45.901 - Unspecified asthma with (acute) exacerbation Status: Acute Assessment and Plan: Will complete tapering course of Prednisone in the outpatient setting. DS: Summary Hospital Course Reason for hospitalization: Acute Asthma exaerbation Hospital Course: Had uneventful hospital course, was ruled out for Covid 19, received systemic steroids, breathing treatments. Time spent discussing smoking cessation with patient: more than 10 minutes (Patient doesn't smoke.) Status at Discharge Functional status at discharge: independent ambulation Overall status at discharge: patient is back to baseline Time Spent with Patient Time attestation: Total time spent providing and/or coordinating discharge services: Time spent: Greater than 30 minutes Specific discharge activities: Needs to establish care in the area. Exam Narrative: Exam Narrative: Well appearing,NAD. Const: General: comfortable, alert and awake Nutritional Appearance: average body habitus and well nourished HENMT: Head: normal to inspection Ears: hearing grossly normal bilaterally General nose exam: Normal external nose present Face and sinus: normal facial exam Mouth: Yes Normal oral and palatal mucosa present Eyes: General: appearance normal, both eyes and all related structures Pupils: Equal, round and reactive pupils present EOM: EOMs intact bilaterally Neck: Neck: no lymphadenopathy and no JVD Resp: Effort & Inspection: normal respiratory effort Auscultation: clear to auscultation bilaterally Cardio: Jugular venous distension: no JVD Rate: regular rate Rhythm: regular rhythm Heart sounds: S1 normal heart sound present and S2 normal heart sound present GI: Inspection: normal to inspection GI Palp: Yes Soft to palpation and Yes No hepatosplenomegaly present Auscultation: normal bowel sounds Skin: General skin exam: normal color Lesions: no lesions Rashes: no rashes Trauma: no lacerations or abrasions Wounds: no wounds Neuro: General: patient oriented x3 Cranial nerves: Yes CN's II-XII intact bilaterally and Yes Equal, round and reactive pupils present DS: Data Data Completed and Pending Completed studies during hospitalization: Covid 19 SARS pcr Pending studies at discharge: None Labs on day of discharge: None Imaging Radiologist's impression: No acute cardiopulmonary findings. Discharge Plan Discharge Attending physician on discharge: Ariane Pugh V. Discharging Clinician: Ariane Pugh V. Patient Disposition: Home, Self-Care Activity: as tolerated Diet: regular Patient Instructions: Albuterol (By breathing), Asthma (DC) Stand Alone Forms: General Discharge Information Follow-up/Referrals: PHYSICIAN,AUT[employer] COUNTER PERSON [Primary Care Provider] - Follow Up with Primary Dr Discharge Medications: New montelukast 10 mg tablet 10 mg PO DAILY Qty: 30 RF: 0 Combivent Respimat 20-100 mcg/actuation mist 1 puff INHALATION Q4H Qty: 2 RF: 0 prednisone 10 mg tablet 10 mg PO DAILY Qty: 30 RF: 0 albuterol sulfate 90 mcg/actuation HFA aerosol inhaler 2 puff INHALATION QID MDD 8 puffs PRN (Reason: shortness of breath or wheezing) Qty: 18 RF: 0 Continued albuterol sulfate 90 mcg/actuation HFA aerosol inhaler 2 puff INHALATION QID PRN (Reason: shortness of breath or wheezing) Qty: 6.7 RF: 0 No Action (DME) Aerochamber MV Spacer See Rx Instructions .ROUTE .MEDSUPPLY Qty: 1 RF: 0 Date of admission: 02/08/20 02:13 Primary Care Provider: PHYSICIAN,[employer] COUNTER PERSON Admitting Provider: Sajan Park Discharge Date/Time: 02/10/20 11:45 Attending mila
== END 2020-02-10 11:45 | disposition home or self-care (01) | DRG 141 ==
LOC: ANHED 02-08 02:28 → ANHICU 02-08 03:11 → ANH2MED 02-10 10:29 → ANHICU 02-14 15:41
PROVIDERS: Admitting Provider Family Medicine; Emergency Provider Family Medicine; Visit Provider Internal Medicine
DX: J45.901 Unspecified asthma with (acute) exacerbation (principal); Z20.828 Contact with and (suspected) exposure to other viral communicable diseases; Z79.899 Other long term (current) drug therapy
CPT/HCPCS: 36415; 36600; 71045; 80048; 82375; 82805; 83050; 85025; 87635; 93005; 94002; 94640; 99285; C9803; J2920; J2930; J7030; U0003

== ENCOUNTER 2020-03-25 09:37 | Emergency (ER) | payer MEDICAID, SELFPAY ==
--- NOTE | ~2020-03-25 | XR_ITS ---
EXAMINATION: XR chest 1V portable INDICATION: Cough TECHNIQUE: Portable AP chest at 1033 hours COMPARISON: 02/08/2020 FINDINGS: The lungs are free of acute opacities. There is no pleural effusion or pneumothorax. The ca rdiomediastinal silhouette is normal. IMPRESSION: 1. No acute cardiopulmonary abnormality. Reviewed, dictated and finalized at location A. R PANEL INSTALLER
[2020-03-25 09:48] VITALS: BP 147/81; PULSE 81; RESP 26; TEMP 36.2; O2SAT 97
--- NOTE | 2020-03-25 10:51 | ED.GENADULT ---
HPI - General Adult General Chief complaint: Shortness of Breath/Dyspnea <Eriberto Maki PA-C - Last Filed: 03/25/20 11:04> Stated complaint: SOB-asthma <Eriberto Maki PA-C - Last Filed: 03/25/20 11:04> Time Seen by Provider: 03/25/20 10:03 <Eriberto Maki PA-C - Last Filed: 03/25/20 11:04> Source: patient and family <Eriberto Maki PA-C - Last Filed: 03/25/20 11:04> Mode of arrival: ambulatory <Eriberto Maki PA-C - Last Filed: 03/25/20 11:04> Limitations: language barrier <TEMO Ledbetter Last Filed: 03/25/20 11:04> History of Present Illness HPI narrative: Patient is a 54-year-old female who presents with asthma exacerbation that worsened last night and used her inhaler notes that she is had nonproductive cough with some minimal discomfort of the throat denies fever sick contacts or other complaints has appointment with asthma specialist in the near future only is using albuterol no other medications and on arrival is in no distress and does not appear on cough <Eriberto Maki PA-C - Last Filed: 03/25/20 11:04> Related Data Allergies/adverse reactions: Allergies Allergy/AdvReac Type Severity Reaction Status Date / Time No Known Allergies Allergy Verified 03/25/20 10:17 <Eriberto Maki PA-C - Last Filed: 03/25/20 11:04> Review of Systems Review of Systems: All systems reviewed & are unremarkable except as noted in HPI and below <Eriberto Maki PA-C - Last Filed: 03/25/20 11:04> PMFSH Past Medical History Medical History: Medical History Asthma with exacerbation Reactive airway disease <Eriberto Maki PA-C - Last Filed: 03/25/20 11:04> Surgical History Surgical History: Surgical History No significant past surgical history <TEMO Ledbetter Last Filed: 03/25/20 11:04> Social History Social History: Social History Smoking status: Never smoker Alcohol intake: never Substance use: never Substance use type: does not use Gender identity (if verbalized by the patient): Female Spiritual care concerns: No <Eriberto Maki PA-C - Last Filed: 03/25/20 11:04> Exam Narrative: Exam Narrative: GENERAL: Well-appearing, well-nourished, and in no acute distress. HEAD: Normocephalic, atraumatic. EYES: PERRLA and EOMI. ENT: Nares clear, no rhinorrhea or epistaxis. Mucous membranes moist. NECK: Supple. No adenopathy or masses. CHEST: Clear to auscultation. No respiratory distress. Mild expiratory wheezes HEART: Regular rate and rhythm. No murmur heard. Normal peripheral pulses. ABDOMEN: Soft, nontender, nondistended EXTREMITIES: Normal range of motion. No edema. SKIN: Warm, dry, no rash. NEURO: No focal deficits. Alert and oriented x3. PSYCH: Normal mood and affect. <Eriberto Maki PA-C - Last Filed: 03/25/20 11:04> Course Course Emergency Course: Patient in the room in no distress resting comfortably will be discharged home for further evaluation by her specialist and primary care will be given additional medications to include steroids was given a dose of steroid in the emergency department no high risk changes in the radiograph. Patient notes she has a spacer at home as well <Eriberto Maki PA-C - Last Filed: 03/25/20 11:04> Vital Signs Vital signs: Vital Signs Temperature 97.2 F L 03/25/20 09:48 Pulse Rate 81 03/25/20 09:48 Respiratory Rate 26 H 03/25/20 09:48 Blood Pressure 147/81 H 03/25/20 09:48 Pulse Oximetry 97 03/25/20 09:48 Temperature 97.2 F L 03/25/20 09:48 Pulse Rate 67 03/25/20 11:46 Respiratory Rate 18 03/25/20 11:46 Blood Pressure 129/83 03/25/20 11:46 Pulse Oximetry 100 03/25/20 11:46 <TEMO Ledbetter Last Filed: 03/25/20 11:04> Lola
[2020-03-25] MEDS: predniSONE 20 MG TABLET 60 MG PO (11:22)
[2020-03-25] MEDS: ALBUTEROL SULFATE NEB 2.5 MG/0.5 ML INH 5 MG INHALATION (11:39)
[2020-03-25 11:40] VITALS: PULSE 66; RESP 16
[2020-03-25] MEDS: IPRATROPIUM BR 0.02% INH SOLN 0.5 MG/2.5 ML VIAL INHALATION (11:40)
[2020-03-25 11:46] VITALS: BP 129/83; PULSE 67; RESP 18; O2SAT 100
--- NOTE | 2020-03-25 13:38 | ECG_ITS ---
Measurements Intervals Diana Rate: 79 P: 18 [place]: 120 QRS: 37 QRSD: 98 T: 37 QT: 379 QTc: 437 Interpretive Statements SINUS RHYTHM BASELINE ARTIFACT- II, III, V6 NORMAL ECG Electronically Signed On 03-25-2020 15:06:50 BODY DESIGN CHECKER by Mandeep Moore D.O.
== END 2020-03-25 11:48 | disposition home or self-care (01) ==
PROVIDERS: Emergency Provider General Practice
DX: J45.901 Unspecified asthma with (acute) exacerbation (principal)
CPT/HCPCS: 71045; 93005; 94640; 99283; J7512

== ENCOUNTER 2020-04-16 14:51 | Observation (INO) | payer SELFPAY ==
[2020-04-16] VITALS (14 sets, daily range): BP systolic 131–167; BP diastolic 64–105; PULSE 83–119; RESP 20–32; TEMP 36.3–36.8; O2SAT 88–100; BMI 30.1
--- NOTE | ~2020-04-16 | XR_ITS ---
EXAMINATION: XR chest 1V portable DATE: 04/16/2020 16:18 INDICATION: Asthma presenting with shortness of breath and wheezing TECHNIQUE: frontal view of the chest was obtained. COMPARISON: Chest radiograph dated 03/25/2020 FINDINGS: Mild streaky bibasilar opacities most likely atelectasis. Mild bronchial wall thickening consistent w ith given history of asthma. No pleural effusion or pneumothorax. The cardiomediastinal silhouette is normal. IMPRESSION: 1. Mild bronchial wall thickening consistent with given history of asthma. 2. Mild streaky bibasilar opacities and favor atelectasis over pneumonia. Reviewed, dictated and finalized at location H. RCYCLE RACER
--- NOTE | 2020-04-16 15:09 | ED.SOB ---
HPI - SOB/Dyspnea General Chief Complaint: Shortness of Breath/Dyspnea Stated Complaint: asthma Time Seen by Provider: 04/16/20 15:09 Source: patient Mode of arrival: wheelchair Limitations: no limitations and clinical condition History of Present Illness HPI Narrative: Patient is a 54-year-old female with a history of asthma, multiple admissions to this facility in the past for asthma exacerbation, who presents for evaluation of difficulty breathing, wheezing. Patient states that she started to have increased work of breathing yesterday, has had a dry cough. She denies fever, chills, loss of sense of taste or smell. Patient states this is symptoms similar to previous asthma exacerbations. She is not currently on any antibiotics or steroid therapy. Patient is in extremis at the time of assessment, severe respiratory distress, hypoxic, tachycardic, tachypneic, not able to provide a full history due to acuity of condition. Related Data Allergies Allergy/AdvReac Type Severity Reaction Status Date / Time No Known Allergies Allergy Verified 04/16/20 15:14 Review of Systems Review of Systems: Narrative: CONSTITUTIONAL: Denies fever ENT: Denies rhinorrhea, congestion CARDIOVASCULAR: Denies chest pain, palpitations, or edema. RESPIRATORY: Reports cough and shortness of breath GASTROINTESTINAL: Denies abdominal pain Limited due to acuity of condition PMFSH Past Medical History Medical History Asthma with exacerbation Reactive airway disease Surgical History Surgical History No significant past surgical history Social History Social History Smoking status: Never smoker Alcohol intake: never Substance use: never Substance use type: does not use Gender identity (if verbalized by the patient): Female Spiritual care concerns: No Exam Narrative: Exam Narrative: GENERAL: Awake, alert, able to speak in 1-2 word sentences only HEAD: Normocephalic, atraumatic. EYES: PERRLA and EOMI. ENT: Nares clear, no rhinorrhea or epistaxis. Mucous membranes dry NECK: Supple. CHEST: Tripod position on bed, respiratory distress, use of accessory muscles to breathe, hypoxic, tachypneic, audible wheezing inspiratory and expiratory, bilaterally, all lung smith, poor aeration throughout HEART: Tachycardic rate, sinus rhythm ABDOMEN:Non distended, non tender EXTREMITIES: Normal range of motion. No edema. SKIN: Warm, dry, no rash. NEURO:No focal deficits. Alert and oriented x3 Course Vital Signs Vital signs: Vital Signs Temperature 36.8 C 04/16/20 15:08 Pulse Rate 119 H 04/16/20 15:08 Respiratory Rate 32 H 04/16/20 15:08 Blood Pressure 148/105 H 04/16/20 15:08 Pulse Oximetry 88 L 04/16/20 15:08 Temperature 36.8 C 04/16/20 15:08 Pulse Rate 97 04/16/20 16:55 Respiratory Rate 21 H 04/16/20 16:55 Blood Pressure 167/95 H 04/16/20 15:23 Pulse Oximetry 100 04/16/20 15:23 MDM - SOB/Dyspnea MDM Narrative Medical decision making narrative: The patient presented in extremis from what appeared to be an asthma exacerbation. Patient with refractory, recurrent asthma exacerbations based on chart review with numerous previous admissions. Patient was immediately given 2 g of magnesium, Decadron, DuoNeb treatment with much improvement in her symptoms. At the time of reassessment, patient's tachypnea had markedly improved. She was able to be weaned down to 2 L via nasal cannula without severe increased work of breathing. Given severity, patient will likely require monitoring, additional DuoNeb treatments. I feel like she would likely benefit from a pulmonology as well given her history of recurrent admissions and exacerbations. I do not feel like patient's symptoms are consistent with coronavirus infection at this point. Chest x-ray with streaky opaci
--- NOTE | 2020-04-16 15:14 | ECG_ITS ---
Measurements Intervals [place] Rate: 99 P: 45 WA: 130 QRS: 30 QRSD: 95 T: 41 QT: 350 QTc: 450 Interpretive Statements SINUS RHYTHM DELAYED PRECORDIAL R/S TRANSITION BASELINE ARTIFACT- II, III, AVF, V2, V4-V6 BORDERLINE ECG Electronically Signed On 04-16-2020 17:57:37 [employer] SET UP OPERATOR by Mandeep Moore D.O.
[2020-04-16] MEDS: methylPREDNISolone SOD SUCC 125 MG VIAL IV PUSH (15:22)
[2020-04-16] MEDS: MAGNESIUM SULF 2 GM/WATER 50ML 2 GM/50 ML BAG IVPB (15:22)
[2020-04-16 15:26] LABS: Basophils Absolute Auto 0.2 K/mm3 (0.0-0.1); Basophils Percent Auto 1.6 % (0.2-1.2); Eosinophils Absolute Auto 1.6 K/mm3 (0-0.3); Eosinophils Percent Auto 16.8 % (0-4.4); Hematocrit 44.3 % (37.0-47.0); Hemoglobin 15.1 g/dL (12.0-15.0); Immature Granulocyte Absolute 0.01 K/mm3 (0.00-0.031); Immature Granulocyte Percent A 0.1 % (0-0.5); Immature Platelet Fraction Pct 19.1 % (0.9-11.2); Lymphocytes Percent Auto 23.4 % (18.3-44.2); Mean Corpuscular HGB Conc 34.1 g/dl (32-36); Mean Corpuscular Volume 85.2 fl (80-100); Monocytes Absolute Auto 0.8 K/mm3 (0.1-0.6); Neutrophils Absolute Auto 4.7 K/mm3 (1.3-6.7); Neutrophils Percent Auto 50.1 % (45.5-73.1); Red Cell Distribution Width 12.6 % (11.5-14.5); White Blood Count 9.4 K/mm3 (4.5-10.0)
[2020-04-16] MEDS: ALBUTEROL SULFATE NEB 2.5 MG/0.5 ML INH 20 MG INHALATION (15:31)
[2020-04-16 15:37] LABS: Anion Gap 10 mmol/L (8-16); Blood Urea Nitrogen 10 mg/dL (7-17); Calcium 9.4 mg/dL (8.4-10.2); Carbon Dioxide 23 mmol/L (22-30); Chloride 110 mmol/L (98-107); Estimated CRCL calculation 71 ml/min; Estimated Glomerular Filt Rate > 60; Glucose 104 mg/dL (65-105); Potassium 3.9 mmol/L (3.4-5.0); Sodium 143 mmol/L (137-145)
[2020-04-16 15:40] LABS: Alveolar/Arterial O2 Gradient 551.3 mmHg; Base Excess ABG -3.4 mEq/l (+/-2.0); Carboxyhemoglobin 0.2 % THb (0-2.0); Device NON-REBREATHER MASK; Fractional Inspired Oxygen 100 %; HCO3 ABG 21.4 mEq/l (22.0-26.0); Methemoglobin ABG 0.3 %THb (0-1.5); Modified Allen's Test Pass; Oxygen Content ABG 20.3 %vol (16.0-22.0); Oxygen Saturation ABG 98.4 % (95.0-100.0); Oxyhemoglobin 97.6 % THb (90.0-100.0); PCO2 ABG 37.7 mmHg (35.0-45.0); PO2 FiO2 Ratio Arterial Blood 1.24 %; Reduced Hemoglobin 1.9 %THb (0-5.0); Site Drawn LEFT RADIAL; Total Hemoglobin 14.7 g/dL (12.0-18.0); pH ABG 7.371 (7.350-7.450)
[2020-04-16 15:48] LABS: Platelet Clumps Present; Platelet Estimate Adequate (Adequate)
[2020-04-16] MEDS: IPRATROPIUM BR 0.02% INH SOLN 0.5 MG/2.5 ML VIAL 2 MG INHALATION (16:54)
--- NOTE | 2020-04-16 17:02 | PM.IMHP ---
H&P: HPI History of Present Illness Date/Time: 04/16/20 17:02 Chief complaint: asthma Narrative: Anya Dyer is a 54 year old female past medical history of asthma presents ED with complaints of dyspnea. She uses albuterol rescue inhaler almost every day, singular, prednisone. She does not have any nebulizers at. Her symptom onset was yesterday when she was sitting at doing nothing with no triggers office and felt short of breath. She has a rescue inhaler with no improvement. Patient has been admitted multiple times for asthma exacerbations. Has had no sick contacts, no recent travels, no smoke or chemical exposures. She denies history of smoking. She has these exacerbations every couple months past couple times in August, October, January. In the ED: Patient was tachypneic and given continuous nebulizer treatment. Lab work and ABG unremarkable. Patient made for observation for asthma exacerbation. Vitals are stable after getting treatment in the ED. Patient will likely need prescriptions for asthma management. Review of Systems Review of Systems: Narrative: Constitutional: No Fever, No Chills, No Night Sweats, No Fatigue, No Malaise ENT/Mouth: No Hearing Changes, No Ear Pain, No Nasal Congestion, No Sinus Pain, No Hoarseness, No sore throat, No Rhinorrhea, No Swallowing Difficulty Eyes: No Eye Pain, No Redness, No Vision Changes Cardiovascular: No Chest Pain, No Palpitations, No Dyspnea on Exertion, No Orthopnea, No Claudication, No Edema Respiratory: Endorses dry cough, shortness of breath, wheezing. Denies sputum production. Gastrointestinal: No Nausea, No Vomiting, No Diarrhea, No Constipation, No Abdominal Pain, No Heartburn, No Hematochezia, No Melena Genitourinary: No Dysuria, No Urinary Frequency, No Hematuria, No Urinary Incontinence, No Urgency Musculoskeletal: No Arthralgias, No Myalgias, No Joint Swelling, No Joint Stiffness, No Back Pain Skin: No Skin Lesions, No Pruritis, No Hair Changes Neuro: No Weakness, No Numbness, No Paresthesias, No Loss of Consciousness, No Syncope, No Dizziness, No Headache Psych: No Anxiety/Panic, No Depression, No Insomnia Heme: No Bruising, No Bleeding Lymph: No Adenopathy Endocrine: No Polyuria, No Polydipsia, No Temperature Intolerance [facility] Past Medical History Medical History Asthma with exacerbation Reactive airway disease Surgical History Surgical History No significant past surgical history Social History Social History Smoking status: Never smoker Alcohol intake: never Substance use: never Substance use type: does not use Gender identity (if verbalized by the patient): Female Spiritual care concerns: No Meds Home Medications and Allergies Home Medications Medication Instructions Recorded Confirmed Type inhalational spacing device #1 each 09/20/19 02/08/20 Rx [Aerochamber MV] ipratropium-albuterol [Combivent 1 puff INHALATION Q4H #2 gm 02/10/20 Rx Respimat] montelukast 10 mg PO DAILY #30 tablet 02/10/20 Rx albuterol sulfate 2 puff INHALATION QID PRN #6.7 g 03/25/20 Rx fluticasone propionate [Flonase 2 spray INTRANASAL DAILY #9.9 ml 03/25/20 Rx Allergy Relief] loratadine [Claritin] 10 mg PO DAILY PRN #10 tablet 03/25/20 Rx Allergies Allergy/AdvReac Type Severity Reaction Status Date / Time No Known Allergies Allergy Verified 04/16/20 15:14 Vital Signs Vital Signs - 24 hr 04/16/20 15:08 04/16/20 15:23 04/16/20 15:34 Temperature 36.8 C Pulse Rate 119 H 95 96 Respiratory Rate 32 H 27 H 28 H Blood Pressure 148/105 H 167/95 H Pulse Oximetry 88 L 100 04/16/20 16:40 04/16/20 16:55 Temperature Pulse Rate 97 97 Respiratory Rate 22 H 21 H Blood Pressure Pulse Oximetry Exam Narrative: Exam Narrative: Kelly Reid
[2020-04-16] MEDS: SODIUM CHLORIDE 0.9% IV 500 ML 999 ML IV CONT (17:21)
--- NOTE | 2020-04-16 19:59 | ADMGEN ---
This patient, Anya Dyer, was admitted to IMU Room 205-02. Patient/family oriented to hospital policies and general routines including ID bracelet, bed and alarms, visiting hours, pain management, procedures, bathroom and other care routines, personal items, smoking policy, room service/diet, and visiting hours. Information on how to activate the Rapid Response Team has been discussed. Patient/Family are encouraged to report perceived risks to care and to ask questions if they do not understand what they are told or what they should do.
[2020-04-16] MEDS: ALBUTEROL SULFATE NEB 2.5 MG/0.5 ML INH 5 MG INHALATION (22:06)
[2020-04-16] MEDS: IPRATROPIUM BR 0.02% INH SOLN 0.5 MG/2.5 ML VIAL INHALATION (22:06)
[2020-04-16] MEDS: methylPREDNISolone SOD SUCC 40 MG VIAL IV PUSH (22:19)
[2020-04-17] VITALS (13 sets, daily range): BP systolic 109–112; BP diastolic 61–69; PULSE 62–117; RESP 16–20; TEMP 36.3–36.8; O2SAT 95–96
[2020-04-17] MEDS: IPRATROPIUM BR 0.02% INH SOLN 0.5 MG/2.5 ML VIAL INHALATION ×2 (02:52→08:58)
[2020-04-17] MEDS: ALBUTEROL SULFATE NEB 2.5 MG/0.5 ML INH 5 MG INHALATION ×2 (02:52→08:58)
[2020-04-17] MEDS: methylPREDNISolone SOD SUCC 40 MG VIAL IV PUSH ×2 (06:10→14:05)
[2020-04-17] MEDS: FLUTICASONE PROPIONATE 0.05% NA SPR 16 GM BTL (*BKC) 2 SPRAY NASAL (09:11)
[2020-04-17] MEDS: MONTELUKAST SODIUM 10 MG TABLET PO (09:11)
--- NOTE | 2020-04-17 10:43 | PM.DS ---
DS: Admitting Diagnosis Admitting Diagnosis Admitting Diagnosis: ASTHMA EXACERBATION,ACUTE RESPIRATORY FAILURE DS: Discharge Diagnosis Discharge Diagnosis (1) Asthma with exacerbation: Qualifiers: Asthma persistence: unspecified Asthma severity: severe Qualified Code(s): J45.901 - Unspecified asthma with (acute) exacerbation Code(s): J45.901 - Unspecified asthma with (acute) exacerbation Status: Acute Assessment and Plan: -IV Solu-Medrol transitioned to steroids p.o., will give prednisone taper -patient continue using albuterol inhaler as needed, refill given -patient should have a nebulizer machine at home, patient has no insurance and cost may be an issue, nebulizer machine may cost under 40 dollars however the medication may be the limiter. I will give prescription for nebulizer treatments and patient will see if it is affordable or not. -patient will establish care on 04/23/2020 with PCP, she should look for insurance so that she can get have long-acting beta agonist/ inhaled corticosteroid inhaler. If the inhalers are costly, she may need Atrovent nebs and albuterol nebs. DS: Summary Hospital Course Reason for hospitalization: Asthma exacerbation Hospital Course: Anya Dyer is a 54 year old female past medical history of asthma presents ED with complaints of dyspnea. She uses albuterol rescue inhaler almost every day, singular, prednisone. She does not have a nebulizer. Her symptom onset was the day before admission with no triggers to her asthma exacerbation. She has a rescue inhaler with no improvement. Patient has been admitted multiple times for asthma exacerbations in August, October, January, now on March 2020. Patient improved drastically with Solu-Medrol and continuous neb in the ED. She is admitted for observation for asthma exacerbation. Patient has no insurance and is looking to establish care with primary care provider on 04/23/2020. Her lab work is stable, vitals stable and patient will be discharged to continue asthma management outpatient. Patient has been prescribed rescue albuterol inhaler refill, prednisone taper, albuterol nebs. She will need to follow-up with primary care provider and obtain insurance so that she can get the longer acting inhalers that she needs. She should buy a nebulizer so that she can have neb treatments. PCP will have to coordinate what is most affordable for residential management. In the meantime, Rx for albuterol and steroids is given. Patient understands and agrees with plan. Patient's vitals stable, labs stable, patient stable for discharge. Status at Discharge Functional status at discharge: independent ambulation Overall status at discharge: patient is progressing back to baseline Time Spent with Patient Time attestation: Total time spent providing and/or coordinating discharge services: 45 Time spent: Greater than 30 minutes Exam Narrative: Exam Narrative: - GENERAL: Pleasant obese woman Ugandan-speaking in no acute distress - EYES: EOMI. Anicteric. - HENT: Moist mucous membranes. No scleral icterus. - LUNGS: Diffuse wheezing throughout. No rhonchi or rales. Nonlabored respirations - CARDIOVASCULAR: Regular rate and rhythm. No murmur. No JVD. - ABDOMEN: Soft, non-tender and non-distended. No palpable masses. - EXTREMITIES: No edema. Peripheral pulses 2+. Non-tender. - NEUROLOGIC: No focal neurological deficits. CN II-XII grossly intact. - PSYCHIATRIC: Awake, Alert and oriented x 3. Appropriate mood and affect. - SKIN: No rashes or lesions. Warm. - LYMPH: No cervical lymphadenopathy. DS: Data Data Completed and Pending Labs on day of discharge: Labs from last 24 hours 04/16/20 04/16/20 04/16/20 15:37 15:19 15:19 WBC 9.4 RBC 5.20 Hgb 15.1 H Hct 44.3 MCV 85.2 MCH 29.0 MCHC 34.1 RDW 12.6 Plt Count TNP MPV TNP Immature Gran % (Auto) 0.1 Neut % (Auto) 50.1 Lymph % (Auto) 23.4 [place] %
== END 2020-04-17 14:27 | disposition home or self-care (01) ==
LOC: ANHED 17:07 → ANHIMU 17:35
PROVIDERS: Admitting Provider Student in an Organized Health Care Education/Training Program; Emergency Provider Emergency Medicine; Referring Provider Family Medicine; Visit Provider Student in an Organized Health Care Education/Training Program
DX: J45.901 Unspecified asthma with (acute) exacerbation (principal)
CPT/HCPCS: 36415; 36600; 71045; 80048; 82375; 82805; 83050; 85025; 85055; 93005; 94640; 96365; 96374; 96375; 96376; 99285; A9270; G0378; G0379; J2920; J2930; J3475; J7040

== ENCOUNTER 2020-05-17 17:13 | Emergency (ER) | payer MEDICAID, SELFPAY ==
--- NOTE | ~2020-05-17 | XR_ITS ---
EXAMINATION: XR chest 1V portable 05/17/2020 18:44 INDICATION: Shortness of breath PROCEDURE: AP portable chest COMPARISON: Comparison to multiple prior studies sequentially, with oldest reviewed study dated 01/12. FINDINGS: The lungs are clear. The cardiomediastinal silhouette is within normal limits. There are no pleural effusions. There is no pneumothorax suspected. IMPRESSION: 1: NO ACUTE CARDIOPULMONARY DISEASE. Reviewed, dictated and finalized at location A. TER FOREMAN
[2020-05-17 17:18] VITALS: BP 132/64; PULSE 113; PULSE 114; RESP 22; RESP 25; O2SAT 94; O2SAT 95
--- NOTE | 2020-05-17 17:25 | ED.SOB ---
HPI - SOB/Dyspnea General Chief Complaint: Upper Respiratory Infection Stated Complaint: ASTHMA GETTING WORSE Time Seen by Provider: 05/17/20 17:24 History of Present Illness HPI Narrative: 54 yo female w/ h/o asthma. presents to the ED for wheezing and SOB. She has had nearly constant SOB for several weeks. She also has frequent periods of worsening. This is associated wth wheezing and mild cough. No fever. She was recently hospitalized for the same symptoms and discharged with instructions to establish care with a PCP. She has not done that yet. Related Data Allergies Allergy/AdvReac Type Severity Reaction Status Date / Time No Known Allergies Allergy Verified 04/16/20 15:14 Review of Systems Review of Systems: All systems reviewed & are unremarkable except as noted in HPI and below Constitutional: Constitutional: Denies fever(s) ENT: Denies sore throat Cardiovascular: Cardiovascular: Denies chest pain Respiratory: Respiratory: Reports cough, Reports dyspnea and Reports wheezing Gastrointestinal: Gastrointestinal: Denies abdominal pain, Denies nausea and Denies vomiting Musculoskeletal: Musculoskeletal: Denies back pain Neurologic: Denies weakness [facility] Past Medical History Medical History Asthma with exacerbation Reactive airway disease Surgical History Surgical History No significant past surgical history Social History Social History Smoking status: Never smoker Alcohol intake: never Substance use: never Substance use type: does not use Gender identity (if verbalized by the patient): Female Spiritual care concerns: No Exam Const: General: no acute distress and alert Nutritional Appearance: obese Orientation/consciousness: patient oriented x3 HENMT: Head: normal to inspection Neck: Neck: normal visual inspection Resp: Effort & Inspection: tachypneic Auscultation: wheezes Cardio: Rate: tachycardic Rhythm: regular rhythm GI: GI Palp: Yes Soft to palpation and No Tenderness to palpation present (GI) Skin: General skin exam: normal color Neuro: General: patient oriented x3, moves all extremities and CN's II-XI intact bilaterally Extrem: Other: No calf swelling or tenderness Course Vital Signs Vital signs: Vital Signs Pulse Rate 114 H 05/17/20 17:18 Respiratory Rate 25 H 05/17/20 17:18 Blood Pressure 132/64 05/17/20 17:18 Pulse Oximetry 94 05/17/20 17:18 Pulse Rate 101 H 05/17/20 18:30 Respiratory Rate 20 05/17/20 18:30 Blood Pressure 132/64 05/17/20 17:18 Pulse Oximetry 94 05/17/20 17:18 MDM - SOB/Dyspnea Differential Diagnosis Differential diagnosis: Likely community acquired pneumonia and asthma with exacerbation Medical Records Attestation: I reviewed the patient's medical records. Lab Data Attestation: I reviewed the patient's lab results. Result diagrams: 05/17/20 18:21 05/17/20 18:21 Labs: Lab Results 05/17/20 05/17/20 Range/Units 18:21 18:21 WBC 8.4 (4.5-10.0) K/mm3 RBC 4.89 (4.2-5.4) M/mm3 Hgb 14.3 (12.0-15.0) g/dL Hct 41.9 (37.0-47.0) % MCV 85.7 (80-100) fl MCH 29.2 (26-34) pg MCHC 34.1 (32-36) g/dl RDW 12.9 (11.5-14.5) % Plt Count 166 (150-375) k/mm3 MPV 11.0 H (7.4-10.4) fl Immature Gran % (Auto) 0.5 (0-0.5) % Neut % (Auto) 36.6 L (45.5-73.1) % Lymph % (Auto) 29.4 (18.3-44.2) % [place] % (Auto) 14.2 H (2.6-8.5) % Eos % (Auto) 17.2 H (0-4.4) % Baso % (Auto) 2.1 H (0.2-1.2) % Lymph # (Auto) 2.48 (0.9-3.2) K/mm3 [place] # (Auto) 1.2 H (0.1-0.6) K/mm3 Eos # (Auto) 1.5 H (0-0.3) K/mm3 Baso # (Auto) 0.2 H (0.0-0.1) K/mm3 Abs Immat Gran (auto) 0.04 H (0.00-0.031) K/mm3 Absolute Neuts (auto) 3.1 (1.3-6.7) K/mm3 Absolute Nucleated RBC 0.
[2020-05-17] MEDS: methylPREDNISolone SOD SUCC 125 MG VIAL IV PUSH (17:45)
[2020-05-17] MEDS: ALBUTEROL SULFATE NEB 2.5 MG/0.5 ML INH 10 MG INHALATION (17:50)
[2020-05-17] MEDS: IPRATROPIUM BR 0.02% INH SOLN 0.5 MG/2.5 ML VIAL 1 MG INHALATION (17:50)
[2020-05-17] MEDS: MAGNESIUM SULF 2 GM/WATER 50ML 2 GM/50 ML BAG IVPB (18:20)
[2020-05-17 18:26] LABS: Basophils Absolute Auto 0.2 K/mm3 (0.0-0.1); Basophils Percent Auto 2.1 % (0.2-1.2); Eosinophils Absolute Auto 1.5 K/mm3 (0-0.3); Eosinophils Percent Auto 17.2 % (0-4.4); Hematocrit 41.9 % (37.0-47.0); Hemoglobin 14.3 g/dL (12.0-15.0); Immature Granulocyte Absolute 0.04 K/mm3 (0.00-0.031); Immature Granulocyte Percent A 0.5 % (0-0.5); Lymphocytes Absolute Auto 2.48 K/mm3 (0.9-3.2); Lymphocytes Percent Auto 29.4 % (18.3-44.2); Mean Corpuscular HGB Conc 34.1 g/dl (32-36); Mean Corpuscular Hemoglobin 29.2 pg (26-34); Mean Corpuscular Volume 85.7 fl (80-100); Monocytes Absolute Auto 1.2 K/mm3 (0.1-0.6); Monocytes Percent Auto 14.2 % (2.6-8.5); Neutrophils Absolute Auto 3.1 K/mm3 (1.3-6.7); Neutrophils Percent Auto 36.6 % (45.5-73.1); Platelet Count Result 166 k/mm3 (150-375); Red Blood Count 4.89 M/mm3 (4.2-5.4); Red Cell Distribution Width 12.9 % (11.5-14.5); White Blood Count 8.4 K/mm3 (4.5-10.0)
[2020-05-17 18:30] VITALS: PULSE 101; RESP 20
[2020-05-17 18:38] LABS: Anion Gap 5 mmol/L (8-16); Blood Urea Nitrogen 15 mg/dL (7-17); Carbon Dioxide 27 mmol/L (22-30); Chloride 108 mmol/L (98-107); Estimated Glomerular Filt Rate > 60; Glucose 103 mg/dL (65-105); Potassium 3.7 mmol/L (3.4-5.0); Sodium 140 mmol/L (137-145)
[2020-05-17 19:39] VITALS: BP 132/68; PULSE 99; RESP 14; O2SAT 94
== END 2020-05-17 20:10 | disposition home or self-care (01) ==
PROVIDERS: Emergency Provider Emergency Medicine; Referring Provider Family Medicine
DX: J45.901 Unspecified asthma with (acute) exacerbation (principal)
CPT/HCPCS: 36415; 71045; 80048; 85025; 96365; 96375; 99284; J2930; J3475

== ENCOUNTER 2022-07-14 13:07 | Observation (INO) | payer MEDICAID, SELFPAY ==
--- NOTE | ~2022-07-14 | CT_ITS ---
EXAMINATION: CT abdomen pelvis w con DATE: 07/14/2022 17:15 INDICATION: Abdominal pain. TECHNIQUE: Computed tomography (CT) of the abdomen and pelvis was performed with 100 mL Omnipaque 350 intravenous contrast. Automated exposure control and iterative reconstruction technique were employe d. The dose-length product was 466.72 mGy-cm. COMPARISON: None. FINDINGS: The visualized portions of the lung bases demonstrate minimal atelectasis. There is mucous plugging in the lower lobes. No pleural effusion. The heart size is normal. No pericardial effusion. There is diffuse hepatic steatosis. There are gallstones in the gallbladder, which is distended. Gall bladder wall thickening is noted. The spleen, pancreas, adrenal glands, and kidneys are normal. There are no dilated loops of bowel. The appendix is normal. There are no pathologically enlarged lymph no kayleigh. There is no free intraperitoneal fluid. There is mild thoracic and lumbar spondylosis. IMPRESSION: 1. Acute cholecystitis. Reviewed, dictated and finalized at location A. TIONAL ED INSTRUCTOR IMPRESSION: 1. Acute cholecystitis.
[2022-07-14 14:35] VITALS: BP 114/70; PULSE 90; RESP 16; TEMP 37.1; O2SAT 96
[2022-07-14 16:04] LABS: Basophils Absolute Auto 0.1 K/mm3 (0.0-0.1); Basophils Percent Auto 0.9 % (0.2-1.2); Eosinophils Absolute Auto 0.1 K/mm3 (0-0.3); Eosinophils Percent Auto 0.5 % (0-4.4); Hematocrit 41.4 % (37.0-47.0); Hemoglobin 13.7 g/dL (12.0-15.0); Immature Granulocyte Absolute 0.03 K/mm3 (0.00-0.031); Immature Granulocyte Percent A 0.3 % (0-0.5); Lymphocytes Percent Auto 16.2 % (18.3-44.2); Mean Corpuscular HGB Conc 33.1 g/dl (32-36); Mean Corpuscular Volume 87.7 fl (80-100); Mean Platelet Volume 9.5 fl (7.4-10.4); Monocytes Percent Auto 11.2 % (2.6-8.5); Neutrophils Absolute Auto 6.6 K/mm3 (1.3-6.7); Neutrophils Percent Auto 70.9 % (45.5-73.1); Platelet Count Result 276 k/mm3 (150-375); Red Blood Count 4.72 M/mm3 (4.2-5.4); Red Cell Distribution Width 12.8 % (11.5-14.5); White Blood Count 9.3 K/mm3 (4.5-10.0)
[2022-07-14 16:13] LABS: Alanine Aminotransferase 50 U/L (6-35); Albumin Level 4.6 g/dL (3.5-5.1); Alkaline Phosphatase 117 U/L (38-126); Anion Gap 7 mmol/L (8-16); Aspartate Amino Transferase 41 U/L (14-36); Bilirubin,Total 0.6 mg/dL (0.2-1.3); Blood Urea Nitrogen 15 mg/dL (7-17); Calcium 8.6 mg/dL (8.4-10.2); Carbon Dioxide 24 mmol/L (22-30); Chloride 105 mmol/L (98-107); Estimated CRCL calculation 76 ml/min; Estimated Glomerular Filt Rate > 60; Glucose 112 mg/dL (65-110); Lipase 117 U/L (23-300); Potassium 4.1 mmol/L (3.4-5.0); Sodium 136 mmol/L (137-145)
[2022-07-14 16:33] VITALS: BP 127/74; PULSE 76; RESP 18; O2SAT 98
--- NOTE | 2022-07-14 16:34 | ED.ABDPAIN ---
HPI - Abdominal Pain General Chief Complaint: Abdominal Pain Stated Complaint: abdominal pain Time Seen by Provider: 07/14/22 16:34 Source: patient and family Limitations: language barrier History of Present Illness HPI narrative: 56 years old female came to the emergency room with intermittent right upper quadrant pain for the last 4 months got worse over the last 3 days, associated with chills and fever. She denies any nausea or vomiting. History of asthma, she denied any history of abdominal surgery. Last meal was last night, Related Data Allergies Allergy/AdvReac Type Severity Reaction Status Date / Time No Known Allergies Allergy Verified 07/14/22 16:43 Review of Systems Review of Systems: All systems reviewed & are unremarkable except as noted in HPI and below PMFSH Past Medical History Medical History Asthma with exacerbation Reactive airway disease Surgical History Surgical History No significant past surgical history Social History Social History Smoking status: Never smoker Alcohol intake: never Substance use: never Substance use type: does not use Gender identity (if verbalized by the patient): Female Spiritual care concerns: No Exam Narrative: General appearance: Well-developed, well-nourished Skin: Normal color Head: Normocephalic, nontraumatic Eyes: Clear conjunctiva ENT: Oropharynx normal, ears normal, nose normal Neck: Supple, nontender Chest and respiratory: Airway patent, no respiratory distress, no accessory muscle use Heart: Regular rate/rhythm Abdomen: Soft, right upper quadrant tenderness, positive Naik sign, no organomegaly, quiet bowel sounds Vascular: Normal peripheral pulses, normal capillary refill. Musculoskeletal: Normal range of motion, nontender back Neurologic: Alert and oriented ?3, DOUBLE CUTTER is normal as tested, no gross motor deficit Course Reevaluation(s) Reevaluation #1: Patient feeling much better after IV fluids, Dilaudid and Zofran. Zosyn started. Patient was notified about the admission. Patient agreed. Date: 07/14/22 Time: 19:09 Vital Signs Vital signs: Vital Signs Temperature 37.1 C 07/14/22 14:35 Pulse Rate 90 07/14/22 14:35 Respiratory Rate 16 07/14/22 14:35 Blood Pressure 114/70 07/14/22 14:35 Pulse Oximetry 96 07/14/22 14:35 Temperature 37.1 C 07/14/22 14:35 Pulse Rate 76 07/14/22 16:33 Respiratory Rate 18 07/14/22 16:33 Blood Pressure 127/74 07/14/22 16:33 Pulse Oximetry 98 07/14/22 16:33 MDM - Abdominal Pain MDM Narrative Medical decision making narrative: Patient is 56 years old came with intermittent right upper quadrant pain, got worse lately, physical examination showed diffuse tenderness, positive Naik sign consistent with cholecystitis. Cholecystitis, pancreatitis, gastritis, esophagitis my concern. Labs, UA, CT abdomen and pelvis with IV contrast, IV normal saline 1 L, Dilaudid 0.5 mg IV, Zofran 4 mg IV ordered Blood work-up and urine analysis showed no acute abnormalities. CT abdomen and pelvis with IV contrast showed finding consistent with acute cholecystitis. Zosyn IV is started, Dr. Rocha was notified, patient will be admitted to surgery. The plan to check CBC and CMP and gallbladder ultrasound in the a.m., continue Zosyn every 6 hours, n.p.o. after midnight and continue IV fluid. Lab Data 07/14/22 15:58 07/14/22 15:58 Labs: Lab Results 07/14/22 07/14/22 07/14/22 Range/Units 15:58 15:58 16:44 WBC 9.3 (4.
[2022-07-14] MEDS: SODIUM CHLORIDE 0.9% IV 1,000 ML 999 ML IV CONT (16:47)
[2022-07-14] MEDS: MORPHINE SULFATE (*CRX) 4 MG/ML INJ IV PUSH (16:47)
[2022-07-14] MEDS: ONDANSETRON INJ 4 MG/2 ML VIAL IV PUSH ×2 (16:48→21:19)
[2022-07-14 17:10] LABS: Appearance Urine Slightly Cloudy (Clear); Bilirubin Urine Negative (Negative); Blood Urine Negative (Negative); Color Urine Yellow (Yellow); Glucose Urine UA Negative (Negative); Ketones Urine Negative (Negative); Leukocyte Esterase Ur Negative LEU/UL (Negative); Nitrate Urine Negative (Negative); Protein Urine 1+ mg/dL (Negative); Specific Grav Ur >= 1.030 (1.001-1.035); Urobilinogen Urine 0.2 mg/dL (<2.0); pH Urine 5.5 (5.0-9.0)
[2022-07-14 17:17] LABS: Amorphous Sediment Urine Moderate; Mucus Urine Rare /lpf; Squamous Epithelial Cell Urine Rare /hpf (Few); WBC Urine 0-3 /hpf
[2022-07-14 17:24] LABS: Add Urine Microscopic? YES
[2022-07-14 19:05] VITALS: BP 123/71; PULSE 85; RESP 16; O2SAT 98
[2022-07-14] MEDS: HYDROmorphone HCL INJ (*CRX) 1 MG/ML SYR 0.5 MG IV PUSH (21:19)
[2022-07-14] MEDS: LACTATED RINGERS 1,000 ML 125 ML IV CONT (22:28)
[2022-07-15] VITALS (12 sets, daily range): BP systolic 94–146; BP diastolic 46–76; PULSE 73–92; RESP 14–20; TEMP 36.5–39.4; O2SAT 93–98
[2022-07-15] MEDS: HYDROmorphone HCL INJ (*CRX) 1 MG/ML SYR 0.5 MG IV PUSH ×2 (02:18→08:17)
[2022-07-15] MEDS: ONDANSETRON INJ 4 MG/2 ML VIAL IV PUSH (02:19)
[2022-07-15 06:16] LABS: Basophils Percent Auto 0.5 % (0.2-1.2); Eosinophils Percent Auto 0.4 % (0-4.4); Hematocrit 38.8 % (37.0-47.0); Hemoglobin 12.5 g/dL (12.0-15.0); Immature Granulocyte Absolute 0.03 K/mm3 (0.00-0.031); Immature Granulocyte Percent A 0.4 % (0-0.5); Lymphocytes Absolute Auto 1.64 K/mm3 (0.9-3.2); Lymphocytes Percent Auto 19.6 % (18.3-44.2); Mean Corpuscular HGB Conc 32.2 g/dl (32-36); Mean Corpuscular Volume 86.8 fl (80-100); Monocytes Absolute Auto 1.1 K/mm3 (0.1-0.6); Monocytes Percent Auto 13.4 % (2.6-8.5); Neutrophils Absolute Auto 5.5 K/mm3 (1.3-6.7); Neutrophils Percent Auto 65.7 % (45.5-73.1); Platelet Count Result 256 k/mm3 (150-375); Red Blood Count 4.47 M/mm3 (4.2-5.4); Red Cell Distribution Width 12.7 % (11.5-14.5); White Blood Count 8.4 K/mm3 (4.5-10.0)
[2022-07-15 06:30] LABS: Alanine Aminotransferase 95 U/L (6-35); Alkaline Phosphatase 139 U/L (38-126); Anion Gap 5 mmol/L (8-16); Aspartate Amino Transferase 93 U/L (14-36); Bilirubin,Total 0.7 mg/dL (0.2-1.3); Blood Urea Nitrogen 12 mg/dL (7-17); Calcium 8.1 mg/dL (8.4-10.2); Carbon Dioxide 26 mmol/L (22-30); Chloride 105 mmol/L (98-107); Estimated CRCL calculation 66 ml/min; Estimated Glomerular Filt Rate > 60; Glucose 134 mg/dL (65-110); Potassium 3.9 mmol/L (3.4-5.0); Sodium 136 mmol/L (137-145)
[2022-07-15] MEDS: PANTOPRAZOLE SODIUM IV 40 MG VIAL IV PUSH (08:19)
[2022-07-15] MEDS: LACTATED RINGERS 1,000 ML 125 ML IV CONT (09:30)
--- NOTE | 2022-07-15 10:00 | PM.IMHP ---
H&P: HPI History of Present Illness Date/Time: 07/15/22 10:00 <Sharifa BErin FarnsworthLU helms - Last Filed: 07/15/22 11:37> Chief Complaint: RUQ abdominal pain <Sharifa FarnsworthLU helms - Last Filed: 07/15/22 11:37> Narrative: This is a 56-year-old Burundian-speaking female with a history of asthma, who presented to the ER yesterday afternoon with a 4-5 month history of RUQ abdominal pain. She reports for the past 4-5 months, she has been having RUQ abdominal pain almost daily following meals that are typically fatty. The pain was initially mild and would resolve with time or after taking Tylenol or Advil. She has not seen a provider for this pain. She had a more severe episode of similar RUQ abdominal pain starting 2 weeks ago. This pain instead remained constant with no alleviating factors. She continued to eat daily with this pain and did feel that eating aggravated her pain. Over the past few days, she began to notice chills with a subjective fever. She felt she could not tolerate the abdominal pain any longer at home and was concerned regarding the fevers, therefore she presented to the ER for evaluation. Labs showed a normal WBC count and slightly elevated AST and ALT. CT scan of the abdomen pelvis showed acute calculous cholecystitis. Our service was consulted by the ED physician and she was admitted for surgical evaluation. She has been started on IV Zosyn, IV fluids, and analgesics. She is currently NPO. She is still having abdominal pain this morning requiring IV Dilaudid. No nausea, vomiting, diarrhea, or dark-colored urine. Her only previous abdominal surgery is a tubal ligation. She does have a history of asthma and takes prednisone 10 mg daily. No other complaints at this time. <Sharifa MongeErin FarnsworthLU helms - Last Filed: 07/15/22 11:37> Review of Systems Review of Systems: All systems reviewed & are unremarkable except as noted in HPI and below <Sharifa Stokes DajaLU helms - Last Filed: 07/15/22 11:37> Constitutional: Constitutional: Reports no additional constitutional complaints, Reports chills, Denies fatigue and Reports fever(s) <LU Chaparro - Last Filed: 07/15/22 11:37> Eyes: Eyes: Reports no additional eye complaints <LU Chaparro - Last Filed: 07/15/22 11:37> ENT: Reports system reviewed and no additional complaints, except as documented and Denies dizziness <HALIMA ChaparroP - Last Filed: 07/15/22 11:37> Cardiovascular: Cardiovascular: Reports no additional cardiovascular complaints, Denies chest pain and Denies leg edema <Sharifa Ballard [facility] [place] - Last Filed: 07/15/22 11:37> Respiratory: Respiratory: Reports no additional respiratory complaints, Denies cough and Denies dyspnea <Sharifa Ballard VIRTUALIZATION ARCHITECT - Last Filed: 07/15/22 11:37> Gastrointestinal: Gastrointestinal: Reports as per HPI, Reports no additional gastrointestinal complaints, Reports abdominal pain, Denies change in bowel habits, Denies change in stool character, Denies diarrhea, Denies nausea and Denies vomiting <Sharifa Ballard VIRTUALIZATION ARCHITECT - Last Filed: 07/15/22 11:37> Genitourinary: Genitourinary: Reports no additional female genitourinary complaints and Denies dysuria <Sharifa Ballard VIRTUALIZATION ARCHITECT - Last Filed: 07/15/22 11:37> Musculoskeletal: Musculoskeletal: Reports no additional musculoskeletal complaints, Denies abnormal gait and Denies joint swelling <LU Chaparro - Last Filed: 07/15/22 11:37> Integumentary/Breasts: Skin/Breast: Reports system reviewed and no additional complaints, except as docu and Denies jaundice <LU Chaparro - Last Filed: 07/15/22 11:37> Neurologic: Reports system reviewed and no additional complaints, except as documented, Denies headache(s), Denies focal weakness, Denies numbness and Denies tingling <LU Chaparro - Last Filed: 07/15/22 11:37> PMF Past Medical History Medical History: Medical History (Updated 07/15/22 @ 11:00 by LU Chaparro) Asthma GERD (gastroesophageal r
[2022-07-15] MEDS: CHLORHEXIDINE GLUCONATE 4% SOL 120 ML BTL 1 APPLIC TOPICAL (11:51)
--- NOTE | 2022-07-15 15:16 | WPDANESEPPF ---
Anes - Initial Pre Proc Eval Procedure: Operation Date: 07/15/22 15:30 Proposed Procedures p Laparoscopic Cholecystectomy, Possible Open - Antonio Rocha MD Date/Time: 07/15/22 15:16 Surgeon: Antonio Rocha MD Pre Op Diagnosis: Acute cholecystitis Patient Data Age: 56 Gender: F Height: 1.55 m Weight: 63.63 kg Last Vital Signs Temp 39.4 C H 07/15/22 14:21 Pulse 84 07/15/22 14:21 Resp 14 07/15/22 14:21 BP 146/55 H 07/15/22 14:21 Pulse Ox 95 07/15/22 14:21 O2 Del Method Room Air 07/15/22 14:21 Allergies Allergy/AdvReac Type Severity Reaction Status Date / Time No Known Allergies Allergy Verified 07/15/22 14:26 Home Medications Medication Instructions Recorded Confirmed Type ipratropium 20 mcg-albuterol 100 1 puff inhalation Q4H #2 grams 02/10/20 07/14/22 Rx mcg/actuation mist for inhalation (Combivent Respimat) fluticasone propionate 50 2 spray intranasal DAILY #9.9 mL 03/25/20 07/14/22 Rx mcg/actuation nasal spray,suspension (Flonase Allergy Relief) albuterol sulfate 2.5 mg/0.5 mL 5 mg inhalation Q6HRT 10 days #40 04/17/20 07/14/22 Rx solution for nebulization ea albuterol sulfate 90 mcg/actuation 2 puff inhalation QID PRN 04/17/20 07/14/22 Rx aerosol inhaler shortness of breath or wheezing 30 days #2 inhalations prednisone 10 mg tablet 10 mg PO DAILY #10 tabs 05/17/20 07/14/22 Rx levothyroxine 25 mcg tablet 25 mcg PO DAILY 07/14/22 07/14/22 History montelukast 10 mg tablet 10 mg PO HS 07/14/22 07/14/22 History omeprazole 20 mg capsule,delayed 20 mg PO DAILY 07/14/22 07/14/22 History release Laboratory Tests 07/14/22 07/14/22 07/14/22 15:58 15:58 16:44 WBC 9.3 K/mm3 K/mm3 (4.5-10.0) RBC 4.72 M/mm3 M/mm3 (4.2-5.4) Hgb 13.7 g/dL g/dL (12.0-15.0) Hct 41.4 % % (37.0-47.0) MCV 87.7 fl fl (80-100) MCH 29.0 pg pg (26-34) MCHC 33.1 g/dl g/dl (32-36) RDW 12.8 % % (11.5-14.5) Plt Count 276 k/mm3 D k/mm3 (150-375) MPV 9.5 fl fl (7.4-10.4) Immature Gran % (Auto) 0.3 % % (0-0.5) Neut % (Auto) 70.9 % % (45.5-73.1) Lymph % (Auto) 16.2 % L % (18.3-44.2) [place] % (Auto) 11.2 % H % (2.6-8.5) Eos % (Auto) 0.5 % % (0-4.4) Baso % (Auto) 0.9 % % (0.2-1.2) Lymph # (Auto) 1.50 K/mm3 K/mm3 (0.9-3.2) [place] # (Auto) 1.0 K/mm3 H K/mm3 (0.1-0.6) Eos # (Auto) 0.1 K/mm3 K/mm3 (0-0.3) Baso # (Auto) 0.1 K/mm3 K/mm3 (0.0-0.1) Abs Immat Gran (auto) 0.03 K/mm3 K/mm3 (0.00-0.031) Absolute Neuts (auto) 6.6 K/mm3 K/mm3 (1.3-6.7) Absolute Nucleated RBC 0.0 K/mm3 K/mm3 (0.0-0.012) Nucleated RBC % 0.0 % % (0.0-0.2) Sodium 136 mmol/L L mmol/L (137-145) Potassium 4.1 mmol/L mmol/L (3.4-5.0) Chloride 105 mmol/L mmol/L (98-107) Carbon Dioxide 24 mmol/L mmol/L (22-30) Anion Gap 7 mmol/L L mmol/L (8-16) BUN 15 mg/dL mg/dL (7-17) Creatinine 0.60 mg/dL L mg/dL (0.7-1.0) Estim Creat Clear Calc 76 ml/min ml/min Estimated GFR > 60 (59 - ) Glucose 112 mg/dL H mg/dL (65-110) Calcium 8.6 mg/dL mg/dL (8.4-10.2) Total Bilirubin 0.6 mg/dL mg/dL (0.2-1.3) AST 41 U/L H U/L (14-36) ALT 50 U/L H U/L (6-35) Alkaline Phosphatase 117 U/L U/L (38-126) Total Protein 8.0 g/dL g/dL (6.3-8.2) Albumin 4.6 g/dL g/dL (3.5-5.1) Lipase 117 U/L U/L (23-300) Urine Color Yellow (Yellow) Urine Appearance Slightly cloudy (Clear) Urine pH 5.5 (5.0-9.0) Ur Specific [place] >= 1.030 (1.001-1.035) Urine Protein 1+ mg/dL H mg/dL (Negative) Urine Glucose (UA) Negati
--- NOTE | 2022-07-15 15:19 | WPDHPUPDATE1 ---
History and Physical Update Update Date/Time: 07/15/22 15:19 History and Physical has been reviewed, including an updated exam of the patient. There are NO changes in the patient's condition. Risks, benefits, and alternatives have been discussed and questions answered. Patient agrees to proceed with procedure.
[2022-07-15] MEDS: BUPivacaine HCL 0.5% PF 30 ML VIAL INFILTRATE (16:08)
[2022-07-15] MEDS: LIDO 1%/EPINEPHRINE 1:100,000 20 ML VIAL INFILTRATE (16:08)
[2022-07-15] MEDS: BUPivacaine HCL 0.5% 10 ML AMP 30 ML INFILTRATE (17:05)
[2022-07-15] MEDS: LACTATED RINGERS 1,000 ML 30 ML IV CONT ×2 (17:26)
--- NOTE | 2022-07-15 18:37 | PC.NURSE ---
Returned from OR per [ ]. Report received from [ Bethany].
--- NOTE | 2022-07-15 19:58 | W.PM.PROC2 ---
Procedure Note - Detailed Date of Procedure 07/15/22 Pre-op Diagnosis Acute cholecystitis secondary to cholelithiasis. Post-op Diagnosis Same Procedure Performed Laparoscopic cholecystectomy. Surgeon Antonio Rocha MD Operating Systems Programmer CHAD James Anesthesia General Indications The patient is a 56-year-old female who is non-Azerbaijani speaking. She presented to the emergency room yesterday with a 3 to 4 day history of worsening right upper quadrant abdominal pain. She had a normal white blood cell count and was normotensive and was not febrile. She did have a CT scan of the abdomen pelvis performed showing multiple large gallstones within the gallbladder with distention of the gallbladder and mild gallbladder wall thickening. She was admitted to the hospital for the clinical picture of acute cholecystitis secondary to cholelithiasis. She is being brought to the operating now for a urgent laparoscopic cholecystectomy Findings The gallbladder was distended and inflamed with multiple large gallstones within it but no evidence of gangrene of the gallbladder wall. There was no perforation of the gallbladder. There were no adhesions of the stomach duodenum or omentum to to the gallbladder. Description of Procedure After informed consent was obtained through a machinery rigger the patient was brought to the operating room where she was placed in supine position and then general endotracheal anesthesia was administered. A Chong catheter was placed decompress the bladder and the abdomen was then prepped and draped in usual sterile fashion. A time-out was then performed correctly identifying the patient as well as procedure to be performed and verified she was on scheduled IV antibiotics. I 1st started by enter the abdomen in the left upper quadrant utilizing a 5mm Optiview port with a direct optical insertion. Once inside the abdomen insufflated to an adequate pneumoperitoneum of 15mmHg of CO2. Looking around the area the umbilicus there were no adhesions this area and so I placed a 5mm Optiview port in the periumbilical position. The laparoscopic switched to the periumbilical trocar port site and then looking to the upper portion of the abdomen back into the gallbladder which was acutely inflamed and distended but without evidence of gangrene of the gallbladder wall. I then placed additional trocar ports to include a 10mm epigastric trocar port and 2 right lateral subcostal 5mm trocar ports. I then under direct visualization utilize the laparoscopic aspirating needle to decompress the gallbladder. There was drainage of nonpurulent bilious fluid. I then held the gallbladder at the dome with a laparoscopic grasper and elevated over the gallbladder over the right half liver towards the right shoulder. A 2nd grasper was used to hold the gallbladder at the infundibulum and then I proceeded to strip down the visceroperitoneum off of the infundibular gallbladder and to identify the cystic duct. The cystic duct was dissected out circumferentially. The cystic artery was identified posterior medial to the duct and I dissected out the structures circumferentially as well. The posterior wall the gallbladder at the infundibulum was dissected free of the liver until the critical view was obtained. At this point I then placed 2 clips proximally the cystic duct and 2 clips distally high on the infundibular gallbladder. The cystic duct was divided with Endo Ashley. In a similar fashion the cystic artery was clipped and divided as well. The gallbladder was then resected off the liver back utilizing electrocautery. Due to the acute inflammation the dissection plane was somewhat difficult to identify and there was some minor bleeding from the liver bed which was controlled with electrocautery. Once the gallbladder was completely released from the liver it was placed into an Endo-Catch bag and brought out through the epigastric port site. Due to the multiple la
[2022-07-15] MEDS: MONTELUKAST SODIUM 10 MG TABLET PO (21:04)
[2022-07-16] VITALS: BP 121/65; PULSE 80; RESP 16; TEMP 36.2; O2SAT 94
[2022-07-16] MEDS: oxyCODONE HCL (*CRX) 5 MG TAB IR PO ×2 (00:59→08:38)
[2022-07-16 04:00] VITALS: BP 97/57; PULSE 74; RESP 14; TEMP 36.2; O2SAT 93
[2022-07-16] MEDS: LEVOTHYROXINE SODIUM 25 MCG TABLET PO (06:30)
[2022-07-16 07:18] VITALS: PULSE 72; RESP 18
[2022-07-16] MEDS: ALBUTEROL SULFATE NEB 2.5 MG/3 ML INH 5 MG INHALATION ×2 (07:18→13:20)
[2022-07-16 07:37] VITALS: PULSE 71; RESP 18
[2022-07-16] MEDS: FLUTICASONE PROPIONATE 0.05% NA SPR 16 GM BTL (*BKC) 2 SPRAY NASAL (08:33)
[2022-07-16] MEDS: PANTOPRAZOLE 40 MG TABLET PO (08:33)
[2022-07-16] MEDS: predniSONE 10 MG TABLET PO (08:33)
--- NOTE | 2022-07-16 12:47 | PM.DS ---
DS: Admitting Diagnosis Discharge Date 07/16/22 Admitting Diagnosis Acute cholecystitis Elevated LFTs Asthma Hypothyroidism GERD DS: Discharge Diagnosis Discharge Diagnosis (1) Acute calculous cholecystitis: Code(s): K80.00 - Calculus of gallbladder with acute cholecystitis without obstruction Status: Acute (2) Elevated LFTs: Code(s): R79.89 - Other specified abnormal findings of blood chemistry Status: Acute (3) Asthma: Code(s): J45.909 - Unspecified asthma, uncomplicated Status: Acute (4) Hypothyroidism: Code(s): E03.9 - Hypothyroidism, unspecified Status: Acute (5) GERD (gastroesophageal reflux disease): Code(s): K21.9 - Gastro-esophageal reflux disease without esophagitis Status: Acute DS: Summary Hospital Course Reason for hospitalization: This is a 56-year-old Togolese-speaking female who presented to the ER with a 4-5 month history of right upper quadrant abdominal pain. This was initially intermittent and more mild in nature. Typically followed fatty meals. For the past 2 weeks, the pain became persistent. She eventually presented to the ER for further evaluation. Labs showed mildly elevated AST and ALT with a normal white blood cell count. CT scan of the abdomen and pelvis showed acute calculous cholecystitis with large gallstones noted. Our service was consulted and she was admitted for surgical evaluation of acute cholecystitis. Hospital Course: She was started on broad-spectrum IV antibiotics, IV fluids, analgesics, and made NPO. We discussed treatment options and ultimately decided to proceed with surgery. She underwent a laparoscopic cholecystectomy on 07/15/[address] Rocha. Her gallbladder was distended and inflamed. No evidence of gangrene or perforation. A VERENA drain was left in place and she was observed overnight. As she was slowly advanced to a low-fat diet and tolerated this well. Her postoperative pain was well controlled on postop day 1. Her VERENA drain had minimal output and appeared serosanguineous on postop day 1. Therefore, her VERENA drain was removed prior to discharge. She was stable for discharge on postop day 1 and instructed to follow-up in 2 weeks. Status at Discharge Functional status at discharge: independent ambulation Overall status at discharge: patient is progressing back to baseline Time Spent with Patient Time attestation: Total time spent providing and/or coordinating discharge services: Time spent: Less than 30 minutes Exam Const: General: comfortable, no acute distress and awake Orientation/consciousness: patient oriented x3 Resp: Effort & Inspection: normal respiratory effort Auscultation: clear to auscultation bilaterally Cardio: Rate: regular rate Rhythm: regular rhythm GI: Inspection: non-distended and incision (incisions dry and intact) GI Palp: Yes Soft to palpation and Yes Tenderness to palpation present (GI) (incisional) Auscultation: normal bowel sounds Neuro: General: moves all extremities Psych: Mental Status: mental status grossly normal Insight: Good insight present (Psych) DS: Data Data Completed and Pending Pending studies at discharge: Pending at discharge 07/15/22 16:05 Surgical [PTH] Routine Procedures/Treatments: Procedures Operation Date: 07/15/22 15:30 Actual Procedure Side Surgeon p Laparoscopic Cholecystectomy with VERENA Drain Placement Not Applicable Antonio Rocha MD Imaging Radiologist's impression: ITS Impressions Abdomen/Pelvis CT 07/14/22 17:17 IMPRESSION: 1. Acute cholecystitis. Discharge Plan Discharge Attending physician on discharge: Antonio Rocha Consulting providers: Sharifa Ballard ; Robert Barr V. ; Dayron Mendoza ; Linda Holm Discharging Clinician: Sharifa Ballard Anticipated Discharge Date/Time: 07/16/22 13:00 Patient Disposition: Home, Self-Care Activity: may shower and other - see discharge instructio
[2022-07-16 13:21] VITALS: PULSE 66; RESP 18; O2SAT 96
[2022-07-16 13:37] VITALS: PULSE 76; RESP 18
--- NOTE | 2022-07-16 14:20 | WPDANESPN ---
Anes - Prog Note Post-Op Date/Time: 07/16/22 14:20 Vital Signs: Last Vital Signs Temp 36.2 C L 07/16/22 04:00 Pulse 76 07/16/22 13:37 Resp 18 07/16/22 13:37 BP 97/57 L 07/16/22 04:00 Pulse Ox 96 07/16/22 13:21 O2 Del Method Room Air 07/16/22 13:21 O2 Flow Rate 8 07/15/22 17:55 FiO2 21 07/16/22 13:21 Pain Score (VAS): 0 I/O: Intake & Output 07/15/22 07/16/22 07/16/22 23:59 07:59 15:59 Intake Total 0 250 620 Output Total 8 60 Balance -8 250 560 Laboratory Tests 07/15/22 05:42 07/15/22 05:42 Patient Feedback: Patient satisfied with anesthetic care.
== END 2022-07-16 14:05 | disposition home or self-care (01) ==
LOC: ANHED 19:13 → ANH3MEDSUR 21:03
PROVIDERS: Admitting Provider Surgery; Emergency Provider Emergency Medicine; Visit Provider Surgery
PROC: 0FT44ZZ Resection of Gallbladder, Percutaneous Endoscopic Approach (ICD-10-PCS; CPT 47562; principal; 2022-07-15 15:30)
DX: K80.00 Calculus of gallbladder with acute cholecystitis without obstruction (principal); J45.909 Unspecified asthma, uncomplicated; K21.9 Gastro-esophageal reflux disease without esophagitis; E03.9 Hypothyroidism, unspecified; R79.89 Other specified abnormal findings of blood chemistry; Z79.51 Long term (current) use of inhaled steroids; Z79.52 Long term (current) use of systemic steroids; Z79.899 Other long term (current) drug therapy
CPT/HCPCS: 47562; 36415; 74177; 80053; 81001; 81025; 83690; 85025; 86850; 86900; 86901; 88304; 94640; 96361; 96365; 96375; 99285; A9270; C1713; C9113; G0378; G0379; J0131; J0330; J1100; J1170; J2250; J2270; J2405; J2543; J2704; J2710; J3010; J7030; J7120; J7512; Q9967